=== PATIENT | female | born 1945 | race Caucasian/White ===

== ENCOUNTER 2017-09-20 13:16 | Inpatient (IN) | payer MEDICARE, MEDICAID ==
[~2017-09-20] VITALS: Ht 160 cm; Wt 94.1 kg
[~2017-09-20 13:16] MED LIST: ASPI-611 PO; CYCL-1 PO; DIPH25CA83 PO; HYDR28CR14 TOP; INSU100V36 SQ; LANTUS SQ; NORCO10T PO; SYN0.075T PO
[2017-09-20] MEDS ORDERED: normal saline 1000ML IV soln IVB ONE (13:30)
[2017-09-20] MEDS ORDERED: ondansetron/PF 4mg/2ml inj IV ONE ×2 (13:30→15:20)
[2017-09-20 14:04] LABS: CLARITY,URINE Clear (Clear); COLOR,URINE Yellow (Yellow); GLUCOSE, URINE 500 mg/dl (Neg); KETONES,URINE 15 mg/dl (Neg); LEUKOCYTE ESTERASE ,URINE Negative (Neg); NITRITES, URINE Negative (Neg); OCCULT BLOOD,URINE Negative (Neg); PROTEIN,URINE 100 mg/dl (Neg)
[2017-09-20 14:05] LABS: UA COLLECTION TYPE OTHER
[2017-09-20] MEDS ORDERED: diltiazem-D5W 125mg/125ml 125 ML IV ONE (14:10)
[2017-09-20] MEDS ORDERED: diltiazem 5mg/ml 5ml inj. IV ONE (14:10)
[2017-09-20 14:12] LABS: BACTERIA,URINE NONE SEEN /HPF (Neg); FINE GRANULAR CAST 0-3 /LPF (NEGATIVE); MUCUS STRANDS NONE SEEN /LPF (Neg); RBC,URINE NONE SEEN /HPF (0-2); SQUAMOUS EPITHELIAL CELL,UR FEW /LPF (FEW); WBC,URINE 0-4 /HPF (0-4)
[2017-09-20 14:21] LABS: ALANINE AMINOTRANSFERASE 40 U/L (12-78); ALBUMIN/GLOBULIN RATIO 0.8 (1.1-1.5); ALKALINE PHOSPHATASE 105 IU/L (46-116); ANION GAP 14 (8-16); ASPARTATE AMINO TRANSFERASE 48 U/L (10-37); BILIRUBIN,TOTAL 0.5 MG/DL (0.1-1.0); BLOOD UREA NITROGEN 20 MG/DL (7-18); BUN/CREATININE RATIO 15.7 (6.6-38.0); CALCIUM 8.4 MG/DL (8.5-10.1); CHLORIDE 103 MMOL/L (99-107); CREATININE 1.27 MG/DL (0.40-0.90); GLUCOSE 260 MG/DL (70-104); LIPASE 151 U/L (73-393); MAGNESIUM 1.6 MG/DL (1.5-2.4); POTASSIUM 4.1 MMOL/L (3.5-5.1); SODIUM 140 MMOL/L (135-145); TOTAL CARBON DIOXIDE 23.3 MMOL/L (24-32); TOTAL PROTEIN 6.8 G/DL (6.4-8.2); eGFR 41 ML/MIN
[2017-09-20] MEDS ORDERED: fentaNYL/PF 50MCG/1 ML 2ML syringe IV ONE (15:30)
[2017-09-20 15:47] LABS: BASOPHILS % (AUTO) 0.3 % (0-1); EOSINOPHILS % (AUTO) 0 % (0-6); HEMATOCRIT 42.7 % (35.0-45.0); LYMPHOCYTES # (AUTO) 0.9 X10'3 (1.1-4.8); LYMPHOCYTES % (AUTO) 28.2 % (21-51); MEAN CORPUSCULAR HEMOGLOBIN 29.3 PG (27.0-31.0); MEAN CORPUSCULAR HGB CONC 35.1 % (33.0-36.5); MEAN CORPUSCULAR VOLUME 83.3 FL (78-98); MEAN PLATELET VOLUME 10.5 FL (7.4-10.4); MONOCYTES # (AUTO) 0.4 X10'3 (0-0.9); NEUTROPHILS % (AUTO) 58.5 % (42-75); PLATELET COUNT 128 X10'3 (140-440); RED BLOOD COUNT 5.13 X10'6 (4.20-5.60); RED CELL DISTRIBUTION WIDTH 14.3 % (11.5-14.5); WHITE BLOOD COUNT 3.3 X10'3 (4.5-11.0)
[2017-09-20 16:27] LABS: BURR CELLS FEW; ELLIPTOCYTES FEW; LARGE PLATELETS FEW; PLATELET ESTIMATE DECREASED; POIKILOCYTOSIS 1+; SCHISTOCYTES FEW; SPHEROCYTES FEW
[2017-09-20] MEDS ORDERED: magnesium 4gm in 100ml NS 100 ML IV PRN (18:15)
[2017-09-20] MEDS ORDERED: potassium Cl 20 mEq SR tablet PO PRN ×2 (18:15)
[2017-09-20] MEDS ORDERED: bisacodyl 10mg suppository rectal RC PRN (18:15)
[2017-09-20] MEDS ORDERED: magnesium hydroxide 30ml (MOM) UD suspension PO PRN (18:15)
[2017-09-20] MEDS ORDERED: mag hydrox/Alum hydrox/simeth 30ml oral suspension PO PRN (18:15)
[2017-09-20] MEDS ORDERED: magnesium 2GM in 50ml NS 50 ML IV PRN (18:15)
[2017-09-20] MEDS ORDERED: HYDROcodone/acetaminophen 10/325mg tab PO PRN ×2 (18:15→18:30)
[2017-09-20] MEDS ORDERED: potassium Cl 40MEQ/NS 500ml 500 ML IV PRN ×2 (18:15)
[2017-09-20] MEDS ORDERED: magnesium Cl slow-release 64mg tablet PO PRN (18:15)
[2017-09-20] MEDS ORDERED: acetaminophen 325mg tablet PO PRN ×2 (18:15)
[2017-09-20] MEDS ORDERED: diphenhydrAMINE 25mg capsule PO PRN (18:30)
[2017-09-20] MEDS ORDERED: cyclobenzaprine 10mg tablet PO PRN (18:30)
[2017-09-20] MEDS: docusate sod 100mg capsule PO SCH (20:00)
[2017-09-20 20:26] LABS: HEMOGLOBIN A1C 8.9 % (4.5-6.2)
[2017-09-20] MEDS: hydrocortisone 1% cream 28gm TP SCH (20:34)
[2017-09-20] MEDS: HYDROmorphone inj. 0.5 MG/0.5 ML DISP.SYRIN IV PRN (20:34)
[2017-09-20 21:00] VITALS: BP 114/85
[2017-09-20] MEDS ORDERED: insulin glargine (Lantus) pen - multi-dose SQ SCH (21:00)
[2017-09-20] MEDS: valacyclovir 500mg tablet PO SCH (21:00)
[2017-09-20] MEDS ORDERED: famotidine 20mg tablet PO PRN (21:10)
[2017-09-20] MEDS ORDERED: heparin 10,000 units/1 ML INJ IV ONE (21:10)
[2017-09-20] MEDS ORDERED: heparin 10,000 units/1 ML INJ IV PRN (21:10)
[2017-09-20 23:00] VITALS: BP 94/58
[2017-09-20] MEDS: ondansetron/PF 4mg/2ml inj IV PRN (23:00)
[2017-09-21] VITALS (11 sets, daily range): BP systolic 96–130; BP diastolic 47–94
[2017-09-21] MEDS: HYDROmorphone inj. 0.5 MG/0.5 ML DISP.SYRIN IV PRN ×3 (03:35→20:45)
[2017-09-21 04:03] LABS: URINE AMPHETAMINE SCREEN NEGATIVE (Neg); URINE BARBITUATE SCREEN NEGATIVE (Neg); URINE BENZODIAZEPINES SCREEN NEGATIVE (Neg); URINE CANNABINOID SCREEN NEGATIVE (Neg); URINE COCAINE SCREEN NEGATIVE (Neg); URINE METHADONE SCREEN NEGATIVE (Neg); URINE OPIATE SCREEN POSITIVE (Neg); URINE PHENCYCLIDINE SCREEN NEGATIVE (Neg)
[2017-09-21 04:20] LABS: BASOPHILS % (AUTO) 0.9 % (0-1); EOSINOPHILS % (AUTO) 1.5 % (0-6); HEMATOCRIT 37.5 % (35.0-45.0); LYMPHOCYTES # (AUTO) 1.5 X10'3 (1.1-4.8); LYMPHOCYTES % (AUTO) 50.9 % (21-51); MEAN CORPUSCULAR HEMOGLOBIN 29.3 PG (27.0-31.0); MEAN CORPUSCULAR HGB CONC 34.8 % (33.0-36.5); MEAN CORPUSCULAR VOLUME 84.1 FL (78-98); MEAN PLATELET VOLUME 10.9 FL (7.4-10.4); MONOCYTES # (AUTO) 0.4 X10'3 (0-0.9); MONOCYTES % (AUTO) 13.1 % (2-12); NEUTROPHILS % (AUTO) 33.6 % (42-75); PLATELET COUNT 120 X10'3 (140-440); RED BLOOD COUNT 4.45 X10'6 (4.20-5.60); RED CELL DISTRIBUTION WIDTH 14.3 % (11.5-14.5)
[2017-09-21 04:39] LABS: ALBUMIN 2.6 G/DL (3.4-5.0); ANION GAP 10 (8-16); BLOOD UREA NITROGEN 23 MG/DL (7-18); BUN/CREATININE RATIO 24.5 (6.6-38.0); CALCIUM 7.9 MG/DL (8.5-10.1); CHLORIDE 104 MMOL/L (99-107); CHOL/HDL RATIO 4.3 (0.00-4.99); CHOLESTEROL 165 MG/DL (0-200); CREATININE 0.94 MG/DL (0.40-0.90); GLUCOSE 198 MG/DL (70-104); HDL CHOLESTEROL 38 MG/DL (35-60); LDL CHOLESTEROL 101 MG/DL (50-100); MAGNESIUM 1.5 MG/DL (1.5-2.4); POTASSIUM 3.6 MMOL/L (3.5-5.1); SODIUM 138 MMOL/L (135-145); TOTAL CARBON DIOXIDE 23.7 MMOL/L (24-32); TRIGLYCERIDES 60 MG/DL (20-135); eGFR 59 ML/MIN
[2017-09-21 04:42] LABS: BURR CELLS FEW; PLATELET ESTIMATE DECREASED; TOTAL CELLS COUNTED 100
[2017-09-21 06:52] LABS: PROTHROMBIN TIME 10.7 SECONDS (9.0-12.0)
[2017-09-21] MEDS ORDERED: non-formulary drug (Aspirin (Aspir 81) 1 TABLET) PO SCH (08:00)
[2017-09-21] MEDS: hydrocortisone 1% cream 28gm TP SCH ×2 (08:00→20:46)
[2017-09-21] MEDS: K and/or MAG REPLACEMENT MC SCH (08:00)
[2017-09-21] MEDS: docusate sod 100mg capsule PO SCH ×2 (08:35→20:50)
[2017-09-21] MEDS: levoTHYROXINE 75mcg tablet PO SCH (08:35)
[2017-09-21] MEDS: aspirin 81mg tablet.DR PO SCH (08:35)
[2017-09-21] MEDS: pantoprazole 40mg Tablet.DR PO SCH (08:35)
[2017-09-21] MEDS: oseltamivir phos 75mg capsule PO SCH ×2 (08:36→20:45)
[2017-09-21] MEDS: valacyclovir 500mg tablet PO SCH ×2 (08:36→20:45)
[2017-09-21] MEDS ORDERED: glucagon, human recombinant 1mg kit SUBCUT PRN (15:00)
[2017-09-21] MEDS ORDERED: dextrose ORAL solution 15 GM/59 ML bottle PO PRN ×2 (15:00)
[2017-09-21] MEDS ORDERED: dextrose 50%-water 50ml dispensing syringe IV PRN ×2 (15:00)
[2017-09-21] MEDS ORDERED: MESSAGE TO PHARMACY PO ONE (15:00)
[2017-09-21] MEDS ORDERED: insulin glargine (Lantus) pen - multi-dose SQ SCH (21:00)
[2017-09-21] MEDS: metoprolol tartrate 12.5mg (1/2 tablet) PO SCH (21:45)
[2017-09-22] MEDS: HYDROmorphone inj. 0.5 MG/0.5 ML DISP.SYRIN IV PRN ×3 (01:52→14:17)
[2017-09-22] MEDS: ondansetron/PF 4mg/2ml inj IV PRN (01:52)
[2017-09-22 03:00] VITALS: BP 97/56
[2017-09-22 06:00] VITALS: BP 111/57
[2017-09-22 06:21] LABS: HEMATOCRIT 36.6 % (35.0-45.0); HEMOGLOBIN 12.6 g/dl (12.0-16.0); MEAN CORPUSCULAR HEMOGLOBIN 29.1 PG (27.0-31.0); MEAN CORPUSCULAR HGB CONC 34.4 % (33.0-36.5); MEAN CORPUSCULAR VOLUME 84.7 FL (78-98); PLATELET COUNT 114 X10'3 (140-440); RED BLOOD COUNT 4.32 X10'6 (4.20-5.60); RED CELL DISTRIBUTION WIDTH 13.9 % (11.5-14.5)
[2017-09-22 06:37] LABS: WHITE BLOOD COUNT 2.6 X10'3 (4.5-11.0)
[2017-09-22 06:59] LABS: ALBUMIN 2.5 G/DL (3.4-5.0); ANION GAP 7 (8-16); BLOOD UREA NITROGEN 22 MG/DL (7-18); CALCIUM 8.4 MG/DL (8.5-10.1); CHLORIDE 106 MMOL/L (99-107); CREATININE 1.05 MG/DL (0.40-0.90); GLUCOSE 190 MG/DL (70-104); MAGNESIUM 1.4 MG/DL (1.5-2.4); POTASSIUM 3.8 MMOL/L (3.5-5.1); SODIUM 140 MMOL/L (135-145); TOTAL CARBON DIOXIDE 27.1 MMOL/L (24-32); eGFR 52 ML/MIN
[2017-09-22 07:30] LABS: TOTAL CELLS COUNTED 100
[2017-09-22] MEDS: pantoprazole 40mg Tablet.DR PO SCH (07:30)
[2017-09-22 07:31] LABS: ANISOCYTOSIS 1+; BURR CELLS 1+; MICROCYTOSIS 1+; PLATELET ESTIMATE DECREASED
[2017-09-22 07:32] LABS: LARGE PLATELETS FEW
[2017-09-22 08:00] VITALS: BP_SYST 101; BP_SYST 109; BP_SYST 124; BP_DIAS 58; BP_DIAS 65; BP_DIAS 70
[2017-09-22] MEDS: K and/or MAG REPLACEMENT MC SCH (08:00)
[2017-09-22] MEDS: metoprolol tartrate 12.5mg (1/2 tablet) PO SCH ×2 (08:48→19:37)
[2017-09-22] MEDS: hydrocortisone 1% cream 28gm TP SCH ×2 (08:48→19:26)
[2017-09-22] MEDS: docusate sod 100mg capsule PO SCH ×2 (08:48→19:31)
[2017-09-22] MEDS: levoTHYROXINE 75mcg tablet PO SCH (08:49)
[2017-09-22] MEDS: oseltamivir phos 75mg capsule PO SCH ×2 (08:49→19:31)
[2017-09-22] MEDS: aspirin 81mg tablet.DR PO SCH (08:53)
[2017-09-22] MEDS: insulin Lispro (HumaLOG) vial - multi-dose SQ SCH ×3 (10:21→19:25)
[2017-09-22 11:00] VITALS: BP 96/55
[2017-09-22 15:00] VITALS: BP 124/64
[2017-09-22] MEDS ORDERED: normal saline 1000ml 1,000 ML IV ONE (15:40)
[2017-09-22] MEDS ORDERED: TAM75C PO (15:46)
[2017-09-22] MEDS ORDERED: METO25TA6 PO (15:46)
[2017-09-22 18:00] VITALS: BP 114/64
[2017-09-22] MEDS ORDERED: APIX5TAB3 PO (18:58)
[2017-09-22] MEDS ORDERED: apixaban 5mg tablet PO SCH (21:40)
== END 2017-09-22 19:50 | disposition home or self-care (01) | DRG 872 ==
LOC: ER 13:17 → ED HOLD 18:14 → PCU 3S 21:05
PROVIDERS: ADMIT Internal Medicine; ATTEND Internal Medicine
DX: A41.9 Sepsis, unspecified organism (principal); I95.9 Hypotension, unspecified; D69.6 Thrombocytopenia, unspecified; I48.91 Unspecified atrial fibrillation; E66.01 Morbid (severe) obesity due to excess calories; E11.9 Type 2 diabetes mellitus without complications; D72.819 Decreased white blood cell count, unspecified; I25.10 Atherosclerotic heart disease of native coronary artery without angina pectoris; E03.9 Hypothyroidism, unspecified; G89.29 Other chronic pain; M54.9 Dorsalgia, unspecified; I10 Essential (primary) hypertension; E78.00 Pure hypercholesterolemia, unspecified; J10.1 Influenza due to other identified influenza virus with other respiratory manifestations; M19.90 Unspecified osteoarthritis, unspecified site; Z90.49 Acquired absence of other specified parts of digestive tract; Z90.710 Acquired absence of both cervix and uterus; Z88.5 Allergy status to narcotic agent; Z88.2 Allergy status to sulfonamides; Z79.899 Other long term (current) drug therapy; Z79.82 Long term (current) use of aspirin; Z79.4 Long term (current) use of insulin; Z68.36 Body mass index [BMI] 36.0-36.9, adult
CPT/HCPCS: 36415; 71045; 74176; 80048; 80053; 80061; 80305; 80320; 81001; 82948; 83036; 83605; 83690; 83735; 83880; 84145; 84443; 84484; 85025; 85610; 85730; 87040; 87070; 87502; 87503; 93005; 93306; 96361; 96365; 96375; 99291; J1170; J1644; J1815; J2405; J3010; J3490; J7030

== ENCOUNTER 2017-11-03 06:23 | Emergency (ER) | payer MEDICARE, MEDICAID ==
[~2017-11-03] VITALS: Ht 5451.6 cm; Wt 90.9 kg
[~2017-11-03 06:23] MED LIST changes: +APIX5TAB3 PO; +METO25TA6 PO; +TAM75C PO
[2017-11-03 06:26] VITALS: BP 145/72
[2017-11-03] MEDS ORDERED: HYDR-569 PO (07:22)
[2017-11-03] MEDS ORDERED: dexamethasone 4mg tablet PO ONE (07:25)
== END 2017-11-03 07:34 | disposition home or self-care (01) ==
LOC: ER 06:24
DX: M54.32 Sciatica, left side (principal); I25.10 Atherosclerotic heart disease of native coronary artery without angina pectoris; E11.9 Type 2 diabetes mellitus without complications; I10 Essential (primary) hypertension; G89.29 Other chronic pain; E78.00 Pure hypercholesterolemia, unspecified; Z88.2 Allergy status to sulfonamides; Z90.49 Acquired absence of other specified parts of digestive tract; Z90.710 Acquired absence of both cervix and uterus; Z79.82 Long term (current) use of aspirin; Z79.4 Long term (current) use of insulin; Z79.899 Other long term (current) drug therapy
CPT/HCPCS: 99283; J8540

== ENCOUNTER 2018-01-25 22:10 | Emergency (ER) | payer MEDICARE, MEDICAID ==
[~2018-01-25] VITALS: Ht 157.5 cm; Wt 100.0 kg
[~2018-01-25 22:10] MED LIST changes: +HYDR-569 PO
[2018-01-25 22:38] LABS: BASOPHILS # (AUTO) 0.1 X10'3 (0-0.2); BASOPHILS % (AUTO) 1.5 % (0-1); EOSINOPHILS # (AUTO) 0.1 X10'3 (0-0.9); EOSINOPHILS % (AUTO) 0.8 % (0-6); HEMOGLOBIN 14.4 g/dl (12.0-16.0); LYMPHOCYTES # (AUTO) 1.9 X10'3 (1.1-4.8); LYMPHOCYTES % (AUTO) 24.3 % (21-51); MEAN CORPUSCULAR HEMOGLOBIN 29.1 PG (27.0-31.0); MEAN CORPUSCULAR HGB CONC 34.4 % (33.0-36.5); MEAN CORPUSCULAR VOLUME 84.4 FL (78-98); MEAN PLATELET VOLUME 10.7 FL (7.4-10.4); MONOCYTES # (AUTO) 0.5 X10'3 (0-0.9); MONOCYTES % (AUTO) 6.4 % (2-12); NEUTROPHILS # (AUTO) 5.1 X10'3 (1.8-7.7); PLATELET COUNT 159 X10'3 (140-440); RED BLOOD COUNT 4.97 X10'6 (4.20-5.60); RED CELL DISTRIBUTION WIDTH 14.5 % (11.5-14.5); WHITE BLOOD COUNT 7.6 X10'3 (4.5-11.0)
[2018-01-25 22:54] LABS: ALANINE AMINOTRANSFERASE 28 U/L (12-78); ALBUMIN 3.7 G/DL (3.4-5.0); ALKALINE PHOSPHATASE 103 IU/L (46-116); ANION GAP 9 (8-16); ASPARTATE AMINO TRANSFERASE 18 U/L (10-37); BILIRUBIN,TOTAL 0.6 MG/DL (0.1-1.0); BLOOD UREA NITROGEN 13 MG/DL (7-18); BUN/CREATININE RATIO 13.8 (6.6-38.0); CALCIUM 9.7 MG/DL (8.5-10.1); CHLORIDE 106 MMOL/L (99-107); CREATININE 0.94 MG/DL (0.40-0.90); GLUCOSE 207 MG/DL (70-104); POTASSIUM 3.9 MMOL/L (3.5-5.1); SODIUM 143 MMOL/L (135-145); TOTAL CARBON DIOXIDE 27.7 MMOL/L (24-32); TOTAL PROTEIN 7.4 G/DL (6.4-8.2); eGFR 58 ML/MIN
[2018-01-25 23:19] VITALS: BP 209/98
== END 2018-01-26 00:31 | disposition home or self-care (01) ==
LOC: ER 22:11
DX: M41.9 Scoliosis, unspecified (principal); M54.40 Lumbago with sciatica, unspecified side; M25.552 Pain in left hip; R42 Dizziness and giddiness; I25.10 Atherosclerotic heart disease of native coronary artery without angina pectoris; I10 Essential (primary) hypertension; E78.00 Pure hypercholesterolemia, unspecified; E11.9 Type 2 diabetes mellitus without complications; M19.90 Unspecified osteoarthritis, unspecified site; G89.29 Other chronic pain; Z90.49 Acquired absence of other specified parts of digestive tract; Z90.710 Acquired absence of both cervix and uterus; Z98.890 Other specified postprocedural states; Z88.5 Allergy status to narcotic agent; Z88.2 Allergy status to sulfonamides; Z79.4 Long term (current) use of insulin; Z79.899 Other long term (current) drug therapy
CPT/HCPCS: 36415; 71045; 72100; 73502; 80053; 82948; 84439; 84443; 84484; 85025; 93005; 99285

== ENCOUNTER 2018-03-30 12:32 | Emergency (ER) | payer MEDICARE, MEDICAID ==
[~2018-03-30] VITALS: Ht 157.5 cm; Wt 92.7 kg
[2018-03-30 13:12] LABS: CLARITY,URINE Clear (Clear); COLOR,URINE Yellow (Yellow); GLUCOSE, URINE >=1000 mg/dl (Neg); KETONES,URINE Negative (Neg); LEUKOCYTE ESTERASE ,URINE Trace (Neg); NITRITES, URINE Negative (Neg); OCCULT BLOOD,URINE Negative (Neg); PROTEIN,URINE Negative (Neg); UROBILINOGEN,URINE 0.2 E.U/dL (0.2-1.0)
[2018-03-30 13:13] LABS: UA COLLECTION TYPE VOIDED
[2018-03-30 13:16] LABS: BASOPHILS % (AUTO) 0.8 % (0-1); EOSINOPHILS # (AUTO) 0.1 X10'3 (0-0.9); EOSINOPHILS % (AUTO) 2.3 % (0-6); HEMATOCRIT 39.5 % (35.0-45.0); HEMOGLOBIN 13.6 g/dl (12.0-16.0); LYMPHOCYTES # (AUTO) 1.6 X10'3 (1.1-4.8); LYMPHOCYTES % (AUTO) 27.7 % (21-51); MEAN CORPUSCULAR HEMOGLOBIN 29.5 PG (27.0-31.0); MEAN CORPUSCULAR HGB CONC 34.3 % (33.0-36.5); MEAN CORPUSCULAR VOLUME 85.8 FL (78-98); MEAN PLATELET VOLUME 10.6 FL (7.4-10.4); MONOCYTES # (AUTO) 0.5 X10'3 (0-0.9); MONOCYTES % (AUTO) 8.8 % (2-12); NEUTROPHILS # (AUTO) 3.6 X10'3 (1.8-7.7); NEUTROPHILS % (AUTO) 60.4 % (42-75); PLATELET COUNT 153 X10'3 (140-440); RED BLOOD COUNT 4.61 X10'6 (4.20-5.60); RED CELL DISTRIBUTION WIDTH 14.4 % (11.5-14.5); WHITE BLOOD COUNT 5.9 X10'3 (4.5-11.0)
[2018-03-30 13:21] LABS: BACTERIA,URINE 4+ /HPF (Neg); MUCUS STRANDS NONE SEEN /LPF (Neg); RBC,URINE NONE SEEN /HPF (0-2); SQUAMOUS EPITHELIAL CELL,UR FEW /LPF (FEW); TRANSITIONAL EPI CELLS,URINE FEW /HPF; WBC CLUMPS,URINE MODERATE /HPF (NEGATIVE); WBC,URINE 30-50 /HPF (0-4)
[2018-03-30 13:32] LABS: INR 1.2 INR; LARGE PLATELETS FEW; PARTIAL THROMBOPLASTIN TIME 35 SECONDS (22-32); PLATELET ESTIMATE NORMAL; PROTHROMBIN TIME 12.1 SECONDS (9.0-12.0)
[2018-03-30 13:38] LABS: ALANINE AMINOTRANSFERASE 28 U/L (12-78); ALBUMIN 3.4 G/DL (3.4-5.0); ALBUMIN/GLOBULIN RATIO 0.9 (1.1-1.5); ALKALINE PHOSPHATASE 98 IU/L (46-116); ANION GAP 8 (8-16); ASPARTATE AMINO TRANSFERASE 13 U/L (10-37); BILIRUBIN,TOTAL 0.4 MG/DL (0.1-1.0); BLOOD UREA NITROGEN 24 MG/DL (7-18); BUN/CREATININE RATIO 23.5 (6.6-38.0); CALCIUM 9.3 MG/DL (8.5-10.1); CHLORIDE 103 MMOL/L (99-107); CREATININE 1.02 MG/DL (0.40-0.90); GLUCOSE 271 MG/DL (70-104); POTASSIUM 4.1 MMOL/L (3.5-5.1); SODIUM 139 MMOL/L (135-145); TOTAL CARBON DIOXIDE 27.8 MMOL/L (24-32); TOTAL PROTEIN 7.1 G/DL (6.4-8.2); eGFR 53 ML/MIN
[2018-03-30] MEDS ORDERED: CEPH250T PO (14:34)
[2018-03-30] MEDS: CefTRIAXone 2gm/D5W 50ml 50 ML IV ONE (14:51)
[2018-03-30] MEDS: insulin regular, human 10 units/0.1 ml syringe IV ONE (14:57)
[2018-03-30] MEDS: normal saline 1000ML IV soln IVB ONE (15:01)
[2018-03-30 15:59] VITALS: BP 130/69
== END 2018-03-30 16:16 | disposition home or self-care (01) ==
LOC: ER 12:32
DX: N39.0 Urinary tract infection, site not specified (principal); R07.9 Chest pain, unspecified; R06.02 Shortness of breath; I25.10 Atherosclerotic heart disease of native coronary artery without angina pectoris; E78.00 Pure hypercholesterolemia, unspecified; I10 Essential (primary) hypertension; E11.9 Type 2 diabetes mellitus without complications; M19.90 Unspecified osteoarthritis, unspecified site; G89.29 Other chronic pain; Z88.6 Allergy status to analgesic agent; Z88.2 Allergy status to sulfonamides; Z79.82 Long term (current) use of aspirin; Z79.899 Other long term (current) drug therapy; Z79.4 Long term (current) use of insulin; Z86.73 Personal history of transient ischemic attack (TIA), and cerebral infarction without residual deficits; Z90.710 Acquired absence of both cervix and uterus; Z90.49 Acquired absence of other specified parts of digestive tract
CPT/HCPCS: 36415; 71045; 80053; 81001; 82948; 83605; 83735; 84484; 85025; 85610; 85730; 87040; 87077; 87088; 87186; 93005; 96365; 96366; 96375; 99285; J0696; J1815; J7030

== ENCOUNTER 2018-03-31 22:00 | Emergency (ER) | payer MEDICARE, MEDICAID ==
[~2018-03-31] VITALS: Ht 157.5 cm; Wt 92.7 kg
[~2018-03-31 22:00] MED LIST changes: +CEPH250T PO
[2018-03-31 22:11] VITALS: BP 146/65
== END 2018-04-01 | disposition left against medical advice (07) ==
LOC: ER 22:01
DX: R53.1 Weakness (principal); Z53.21 Procedure and treatment not carried out due to patient leaving prior to being seen by health care provider
CPT/HCPCS: 82948

== ENCOUNTER 2018-08-07 15:45 | Emergency (ER) | payer MEDICARE, MEDICAID ==
[~2018-08-07] VITALS: Ht 157.5 cm; Wt 97.0 kg
[~2018-08-07 15:45] MED LIST changes: -CEPH250T PO; +HYDR-4383 PO; -HYDR-569 PO
--- NOTE | 2018-08-07 15:59 | NUR ---
case discussed with dr rodriguez and orders received.
[2018-08-07 17:15] LABS: BASOPHILS % (AUTO) 0.7 % (0-1); EOSINOPHILS # (AUTO) 0.1 X10'3 (0-0.9); EOSINOPHILS % (AUTO) 1.2 % (0-6); HEMATOCRIT 41.3 % (35.0-45.0); HEMOGLOBIN 13.5 g/dl (12.0-16.0); LYMPHOCYTES # (AUTO) 1.5 X10'3 (1.1-4.8); LYMPHOCYTES % (AUTO) 26.4 % (21-51); MEAN CORPUSCULAR HEMOGLOBIN 28.4 PG (27.0-31.0); MEAN CORPUSCULAR HGB CONC 32.8 % (33.0-36.5); MEAN CORPUSCULAR VOLUME 86.6 FL (78-98); MEAN PLATELET VOLUME 11.3 FL (7.4-10.4); MONOCYTES # (AUTO) 0.5 X10'3 (0-0.9); MONOCYTES % (AUTO) 8.2 % (2-12); NEUTROPHILS # (AUTO) 3.5 X10'3 (1.8-7.7); NEUTROPHILS % (AUTO) 63.5 % (42-75); PLATELET COUNT 155 X10'3 (140-440); RED BLOOD COUNT 4.77 X10'6 (4.20-5.60); WHITE BLOOD COUNT 5.6 X10'3 (4.5-11.0)
[2018-08-07 17:33] LABS: PARTIAL THROMBOPLASTIN TIME 29 SECONDS (22-32); PROTHROMBIN TIME 10.2 SECONDS (9.0-12.0)
[2018-08-07 17:39] LABS: ALANINE AMINOTRANSFERASE 21 U/L (12-78); ALBUMIN 3.2 G/DL (3.4-5.0); ALBUMIN/GLOBULIN RATIO 0.9 (1.1-1.5); ALKALINE PHOSPHATASE 96 IU/L (46-116); ANION GAP 8 (8-16); ASPARTATE AMINO TRANSFERASE 16 U/L (10-37); BILIRUBIN,TOTAL 0.6 MG/DL (0.1-1.0); BLOOD UREA NITROGEN 22 MG/DL (7-18); BUN/CREATININE RATIO 22.9 (6.6-38.0); CALCIUM 8.6 MG/DL (8.5-10.1); CHLORIDE 103 MMOL/L (99-107); CREATININE 0.96 MG/DL (0.40-0.90); GLUCOSE 251 MG/DL (70-104); POTASSIUM 3.9 MMOL/L (3.5-5.1); SODIUM 139 MMOL/L (135-145); TOTAL CARBON DIOXIDE 28.5 MMOL/L (24-32); TOTAL PROTEIN 6.9 G/DL (6.4-8.2); TROPONIN I < 0.04 NG/ML (0.0-0.05); eGFR 57 ML/MIN
[2018-08-07 17:59] VITALS: BP 142/73
--- NOTE | 2018-08-07 18:33 | NUR ---
PT REQUESTING TO BE DISCHARGED, JARETT CAVANAUGH MADE AWARE, PER PA WE ARE WAITING FOR ONE MORE LAB TEST AND LONG NORMAL PT WILL BE D/C. PT INFORMED.
--- NOTE | 2018-08-07 18:41 | NUR ---
PT REQUESTING TO LEAVE, JARETT CAVANAUGH NOTIFIED, HE WILL GO IN TO REASSESS PATIENT FOR POSSIBLE DISCHARGE OR REQUEST THE PATIENT SIGN AMA.
== END 2018-08-07 18:55 | disposition home or self-care (01) ==
LOC: ER 15:45
DX: R51 Headache (principal); I25.10 Atherosclerotic heart disease of native coronary artery without angina pectoris; E78.00 Pure hypercholesterolemia, unspecified; I10 Essential (primary) hypertension; E11.9 Type 2 diabetes mellitus without complications; M19.90 Unspecified osteoarthritis, unspecified site; G89.29 Other chronic pain; Z86.73 Personal history of transient ischemic attack (TIA), and cerebral infarction without residual deficits; Z90.49 Acquired absence of other specified parts of digestive tract; Z98.890 Other specified postprocedural states; Z90.710 Acquired absence of both cervix and uterus; Z88.5 Allergy status to narcotic agent; Z88.2 Allergy status to sulfonamides; Z79.82 Long term (current) use of aspirin; Z79.899 Other long term (current) drug therapy; Z79.4 Long term (current) use of insulin
CPT/HCPCS: 36415; 70450; 71045; 80053; 84484; 85025; 85610; 85651; 85730; 93005; 99284

== ENCOUNTER 2018-08-27 22:14 | Emergency (ER) | payer MEDICARE, MEDICAID ==
[~2018-08-27] VITALS: Ht 157.5 cm; Wt 95.4 kg
--- NOTE | 2018-08-27 22:40 | NUR ---
Patient very anxious, and becoming increasingly so when s/sx addressed.
[2018-08-27 22:51] LABS: BASOPHILS # (AUTO) 0.1 X10'3 (0-0.2); BASOPHILS % (AUTO) 1.7 % (0-1); EOSINOPHILS # (AUTO) 0.1 X10'3 (0-0.9); HEMATOCRIT 41.7 % (35.0-45.0); HEMOGLOBIN 14.1 g/dl (12.0-16.0); LYMPHOCYTES # (AUTO) 1.9 X10'3 (1.1-4.8); LYMPHOCYTES % (AUTO) 30.6 % (21-51); MEAN CORPUSCULAR HGB CONC 33.8 g/dL (33.0-36.5); MEAN CORPUSCULAR VOLUME 85.9 FL (78-98); MONOCYTES # (AUTO) 0.5 X10'3 (0-0.9); MONOCYTES % (AUTO) 7.5 % (2-12); NEUTROPHILS # (AUTO) 3.6 X10'3 (1.8-7.7); NEUTROPHILS % (AUTO) 58.2 % (42-75); PLATELET COUNT 174 X10'3 (140-440); RED BLOOD COUNT 4.86 X10'6 (4.20-5.60); RED CELL DISTRIBUTION WIDTH 13.8 % (11.5-14.5); WHITE BLOOD COUNT 6.3 X10'3 (4.5-11.0)
[2018-08-27 23:02] LABS: ALANINE AMINOTRANSFERASE 25 U/L (12-78); ALBUMIN 3.4 G/DL (3.4-5.0); ALBUMIN/GLOBULIN RATIO 0.9 (1.1-1.5); ALKALINE PHOSPHATASE 106 IU/L (46-116); ANION GAP 7 (8-16); ASPARTATE AMINO TRANSFERASE 15 U/L (10-37); BILIRUBIN,TOTAL 0.4 MG/DL (0.1-1.0); BLOOD UREA NITROGEN 28 MG/DL (7-18); BUN/CREATININE RATIO 24.1 (6.6-38.0); CHLORIDE 103 MMOL/L (99-107); CREATININE 1.16 MG/DL (0.40-0.90); GLUCOSE 288 MG/DL (70-104); PARTIAL THROMBOPLASTIN TIME 30 SECONDS (22-32); PROTHROMBIN TIME 10.2 SECONDS (9.0-12.0); SODIUM 139 MMOL/L (135-145); TOTAL CARBON DIOXIDE 28.6 MMOL/L (24-32); TOTAL PROTEIN 7.3 G/DL (6.4-8.2); eGFR 46 ML/MIN
[2018-08-27] MEDS ORDERED: aspirin 81mg tab.chew PO ONE (23:05)
[2018-08-27] MEDS ORDERED: nitroGLYCERIN 0.4mg SUBLingual tab SL PRN (23:05)
[2018-08-27] MEDS ORDERED: LORazepam 2 mg/ml vial IV ONE (23:05)
--- NOTE | 2018-08-27 23:15 | NUR ---
Patient requesting dilaudid by name, ERP informed
--- NOTE | 2018-08-27 23:57 | NUR ---
assisting RN with pt care, in and out cath done with sterile technique, pt benedicto well, sample sent to lab
[2018-08-28] MEDS ORDERED: HYDROcodone/acetaminophen 10/325mg tab PO ONE (00:10)
[2018-08-28] MEDS ORDERED: ketorolac trometh. 30mg/ml inj. IV ONE (00:10)
--- NOTE | 2018-08-28 00:20 | NUR ---
Patient requesting dilaudid by name, ERP informed.
[2018-08-28 00:32] LABS: CLARITY,URINE CLEAR (Clear); COLOR,URINE YELLOW (Yellow); GLUCOSE, URINE 500 mg/dl (Neg); KETONES,URINE TRACE mg/dl (Neg); LEUKOCYTE ESTERASE ,URINE NEGATIVE (Neg); NITRITES, URINE NEGATIVE (Neg); OCCULT BLOOD,URINE NEGATIVE (Neg); PH,URINE 6.5 (4.8-8.0); PROTEIN,URINE NEGATIVE (Neg); UROBILINOGEN,URINE 0.2 E.U/dL (0.2-1.0)
[2018-08-28 00:34] LABS: UA COLLECTION TYPE OTHER
[2018-08-28] MEDS ORDERED: levoFLOXACIN 250mg tablet PO ONE (00:40)
[2018-08-28 00:48] VITALS: BP 102/55
[2018-08-28] MEDS ORDERED: ondansetron 4mg rapidly disintigrating tab PO ONE (00:55)
--- NOTE | 2018-08-28 01:07 | NUR ---
Attempting to discharge patient, patient states unable to take po pills d/t nausea despite not having c/o nausea at any time during the visit to this RN. States she doesn't want the norco, and is refusing the levaquin at this time, "I have norco at home, I come here for for pain medications in my IV" Explained that she was given toradol in IV. Again requested Dilaudid by name. When POC was again endorsed to patient, she requested a medical doctor to eval her. SHELBIE Saenz informed.
--- NOTE | 2018-08-28 01:25 | NUR ---
Letty at bedside, orders received for flexeril, and continue discharge.
[2018-08-28] MEDS ORDERED: cyclobenzaprine 10mg tablet PO ONE (01:35)
--- NOTE | 2018-08-28 01:35 | NUR ---
Patient upset, states that she does not feel that she should be discharge unless her pain is completly gone, again asking for IV pain medications. Patient with an unrealistic expectation of pain control.
--- NOTE | 2018-08-28 01:40 | NUR ---
SHELBIE Saenz at bedside with supervisor propellant charge loading.
[2018-08-28] MEDS ORDERED: fentaNYL/PF 50MCG/1 ML 2ML syringe IV ONE (01:45)
--- NOTE | 2018-08-28 01:48 | NUR ---
pt asking to speak to an MD as well as "the head nurse" (was seen by PA) - Dr. Saenz and I spoke with pt and educated on her previous diagnosis of UTI and need to complete antibiotics as directed and that her pain may be related to this infection. She is further educated on the medications that she has already rec'd in ER for her pain s\\s (toradol, ASA, ativan) and also that she has refused the [place] and abx we offered her. She wants to know "when it became acceptable to send pts home in pain" - We again told her that we are trying to manage her pain with the medications given and that no medication is going to eliminate her pain. She states in the past "dilaudid made it so I could go home and sleep and deal with the pain" - she is advised that she is not getting dilaudid and that we can give her flexeril and fentanyl.
--- NOTE | 2018-08-28 02:07 | NUR ---
while administering the fentanyl, pt questions the strength of the medication. She is told that it is 50mcg and then proceeds to state "so it isn't as strong because it is in mcg?" I attempted to educate her about different medications by giving her examples such as a dose of tylenol being 1g and 1mg of dilaudid being equivalent to 7mg morphine but she didn't understand.
--- NOTE | 2018-08-28 02:23 | NUR ---
once again attempted to d\\c patient. She is now asking about her blood sugar and worried about it "being so high" since she isn't planning on going home tonight and isn't traveling with her medications. pt [place] 2[place]. pt is requesting "humalog" - MD advised, pts sugar rechecked and returns at 202. pt will not be medicated and is made aware of this and understands the need to check and take her meds upon returning home. pts IV is removed and a wheelchair is brought and she will be assisted to parkinBeavEx. pt now thanking staffing and asking to let all the staff know she "appreciates us"
== END 2018-08-28 02:45 | disposition home or self-care (01) ==
LOC: ER 22:15
DX: R07.89 Other chest pain (principal); N39.0 Urinary tract infection, site not specified; F41.9 Anxiety disorder, unspecified; M54.5 Low back pain; I25.10 Atherosclerotic heart disease of native coronary artery without angina pectoris; E78.00 Pure hypercholesterolemia, unspecified; I10 Essential (primary) hypertension; E11.9 Type 2 diabetes mellitus without complications; M19.90 Unspecified osteoarthritis, unspecified site; G89.29 Other chronic pain; Z86.73 Personal history of transient ischemic attack (TIA), and cerebral infarction without residual deficits; Z90.49 Acquired absence of other specified parts of digestive tract; Z90.710 Acquired absence of both cervix and uterus; Z98.890 Other specified postprocedural states; Z88.5 Allergy status to narcotic agent; Z88.2 Allergy status to sulfonamides; Z79.82 Long term (current) use of aspirin; Z79.899 Other long term (current) drug therapy; Z79.4 Long term (current) use of insulin
CPT/HCPCS: 36415; 71045; 80053; 81003; 82948; 84484; 85025; 85610; 85730; 93005; 96374; 96375; 99284; J1885; J2060; J3010

== ENCOUNTER 2018-10-31 07:45 | Inpatient (IN) | payer MEDICARE, MEDICAID ==
[~2018-10-31] VITALS: Ht 157.5 cm; Wt 95.5 kg
[2018-10-31] MEDS ORDERED: aspirin 81mg tab.chew PO ONE (08:00)
[2018-10-31] MEDS ORDERED: nitroGLYCERIN 0.4mg SUBLingual tab SL PRN ×2 (08:00→13:10)
--- NOTE | 2018-10-31 08:12 | NUR ---
patient refused aspirin-takes eliquiz,also refused nitro-per fish protector she's not suppsoe to take nitro-Dr. Vincent aware.
[2018-10-31 08:33] LABS: BASOPHILS # (AUTO) 0.1 X10'3 (0-0.2); BASOPHILS % (AUTO) 1.2 % (0-1); EOSINOPHILS # (AUTO) 0.1 X10'3 (0-0.9); EOSINOPHILS % (AUTO) 2.2 % (0-6); HEMATOCRIT 39.9 % (35.0-45.0); HEMOGLOBIN 13.5 g/dl (12.0-16.0); LYMPHOCYTES # (AUTO) 1.8 X10'3 (1.1-4.8); LYMPHOCYTES % (AUTO) 31.2 % (21-51); MEAN CORPUSCULAR HEMOGLOBIN 28.6 PG (27.0-31.0); MEAN CORPUSCULAR HGB CONC 33.8 g/dL (33.0-36.5); MEAN CORPUSCULAR VOLUME 84.7 FL (78-98); MEAN PLATELET VOLUME 10.6 FL (7.4-10.4); MONOCYTES # (AUTO) 0.6 X10'3 (0-0.9); MONOCYTES % (AUTO) 11.2 % (2-12); NEUTROPHILS # (AUTO) 3.1 X10'3 (1.8-7.7); NEUTROPHILS % (AUTO) 54.2 % (42-75); PLATELET COUNT 148 X10'3 (140-440); RED BLOOD COUNT 4.71 X10'6 (4.20-5.60); RED CELL DISTRIBUTION WIDTH 14.7 % (11.5-14.5); WHITE BLOOD COUNT 5.8 X10'3 (4.5-11.0)
[2018-10-31 08:42] LABS: ALANINE AMINOTRANSFERASE 25 U/L (12-78); ALBUMIN 3.2 G/DL (3.4-5.0); ALBUMIN/GLOBULIN RATIO 0.9 (1.1-1.5); ALKALINE PHOSPHATASE 115 IU/L (46-116); ANION GAP 9 (8-16); ASPARTATE AMINO TRANSFERASE 24 U/L (10-37); BILIRUBIN,TOTAL 0.4 MG/DL (0.1-1.0); BLOOD UREA NITROGEN 25 MG/DL (7-18); BUN/CREATININE RATIO 25.5 (6.6-38.0); CALCIUM 8.8 MG/DL (8.5-10.1); CHLORIDE 107 MMOL/L (99-107); CREATININE 0.98 MG/DL (0.40-0.90); GLUCOSE 161 MG/DL (70-104); POTASSIUM 3.8 MMOL/L (3.5-5.1); SODIUM 141 MMOL/L (135-145); TOTAL CARBON DIOXIDE 24.8 MMOL/L (24-32); TOTAL PROTEIN 6.7 G/DL (6.4-8.2); eGFR 56 ML/MIN
[2018-10-31 09:02] LABS: LARGE PLATELETS FEW; PLATELET ESTIMATE NORMAL
--- NOTE | 2018-10-31 09:03 | NUR ---
at bedside. Pt is refusing to be admitted at this time. she wants to rent a hotel room and see if the chest pain subsides.
[2018-10-31] MEDS ORDERED: ondansetron/PF 4mg/2ml inj IV ONE (09:15)
[2018-10-31] MEDS ORDERED: LORazepam 2 mg/ml vial IV ONE (09:20)
[2018-10-31] MEDS ORDERED: acetaminophen 325mg tablet PO PRN ×2 (09:45)
[2018-10-31] MEDS ORDERED: ondansetron/PF 4mg/2ml inj IV PRN (09:45)
[2018-10-31] MEDS ORDERED: insulin Lispro (HumaLOG) vial - multi-dose SQ SCH (09:45)
[2018-10-31] MEDS ORDERED: magnesium 4gm in 100ml NS 100 ML IV PRN (09:45)
[2018-10-31] MEDS ORDERED: dextrose 50%-water 50ml dispensing syringe IV PRN ×2 (09:45)
[2018-10-31] MEDS ORDERED: morphine 4 MG/ML inj SYRINge IV PRN (09:45)
[2018-10-31] MEDS ORDERED: docusate sod 100mg capsule PO PRN (09:45)
[2018-10-31] MEDS ORDERED: mag hydrox/Alum hydrox/simeth 30ml oral suspension PO PRN (09:45)
[2018-10-31] MEDS ORDERED: potassium Cl 20 mEq SR tablet PO PRN ×2 (09:45)
[2018-10-31] MEDS ORDERED: dextrose ORAL solution 15 GM/59 ML bottle PO PRN ×2 (09:45)
[2018-10-31] MEDS ORDERED: magnesium Cl slow-release 64mg tablet PO PRN (09:45)
[2018-10-31] MEDS ORDERED: MESSAGE TO PHARMACY PO ONE (09:45)
[2018-10-31] MEDS ORDERED: glucagon, human recombinant 1mg kit SUBCUT PRN (09:45)
[2018-10-31] MEDS ORDERED: potassium Cl 40MEQ/NS 500ml 500 ML IV PRN ×2 (09:45)
[2018-10-31] MEDS ORDERED: magnesium 2GM in 50ml NS 50 ML IV PRN (09:45)
[2018-10-31 09:47] LABS: CLARITY,URINE CLEAR (Clear); COLOR,URINE YELLOW (Yellow); GLUCOSE, URINE NEGATIVE (Neg); KETONES,URINE NEGATIVE (Neg); LEUKOCYTE ESTERASE ,URINE NEGATIVE (Neg); NITRITES, URINE NEGATIVE (Neg); OCCULT BLOOD,URINE NEGATIVE (Neg); PH,URINE 5.5 (4.8-8.0); PROTEIN,URINE NEGATIVE (Neg); UROBILINOGEN,URINE 0.2 E.U/dL (0.2-1.0)
[2018-10-31 09:48] LABS: UA COLLECTION TYPE CLN CATCH MIDSTREAM
[2018-10-31 10:07] LABS: CHOL/HDL RATIO 3.6 (0.00-4.99); CHOLESTEROL 218 MG/DL (0-200); HDL CHOLESTEROL 60 MG/DL (35-60); LDL CHOLESTEROL 153 MG/DL (50-100); TRIGLYCERIDES 57 MG/DL (20-135)
[2018-10-31] MEDS: normal saline 1000ml 1,000 ML IV SCH ×2 (10:07→16:45)
[2018-10-31] MEDS ORDERED: fentaNYL/PF 50MCG/1 ML 2ML syringe IV ONE (11:05)
[2018-10-31] MEDS ORDERED: HYDROmorphone inj. 0.5 MG/0.5 ML DISP.SYRIN IV ONE ×2 (12:10→21:20)
[2018-10-31] MEDS ORDERED: CIPR-230 PO (12:32)
[2018-10-31] MEDS ORDERED: APIX5TAB3 PO (12:32)
[2018-10-31] MEDS ORDERED: METO-395 PO (12:32)
[2018-10-31] MEDS ORDERED: MULT-1180 PO (12:32)
[2018-10-31] MEDS ORDERED: metoprolol tartrate 1mg/ml inj IV PRN (13:10)
[2018-10-31] MEDS ORDERED: aminophylline 250mg/10ml inj. IV PRN (13:10)
[2018-10-31] MEDS ORDERED: regadenoson 0.4mg/5ml syringe IV ONE (13:10)
[2018-10-31 13:33] LABS: HEMOGLOBIN A1C 8.4 % (4.5-6.2)
--- NOTE | 2018-10-31 14:54 | NUR ---
received pt report from Mariia DELACRUZ; all questions answered
[2018-10-31 15:00] VITALS: BP 115/51
--- NOTE | 2018-10-31 15:00 | NUR ---
pt arrived to floor via wheel chair. pt oriented to room and call light. VSS.
--- NOTE | 2018-10-31 15:50 | NUR ---
PATIENT MOVED TO ROOM 316. TO ACCOMMODATE ALLOWING THE TO STAY WITH PATIENT. PATIENT ALSO ASKED IF HER DIRECTOR OF TAX SERVICES DOG, JOHANA, WOULD BE ALLOWED IN HER ROOM. I EXPLAINED TO THE PATIENT THAT WOULD BE OK - HOWEVER, IF THE DOG STARTS BARKING OR MAKES A MESS IN THE ROOM THEN UNFORTUNATELY THE DOG WOULD NEED TO GO. PATIENT AND VERBALIZED UNDERSTANDING
--- NOTE | 2018-10-31 16:54 | NUR ---
PAGER ID: [phone] MESSAGE: Yolanda Dominguez. rm 316. pt has not had BM in 3 days. requesting a suppository. pt is also asking for dialaudid for pain. won't take Mathews because nauseous and allergy to morphine. Diana ext [phone]
[2018-10-31] MEDS ORDERED: bisacodyl 10mg suppository rectal RC STA (16:57)
--- NOTE | 2018-10-31 17:02 | NUR ---
Angelina called back. new orders received: suppository x1 now, dilaudid x1 dose only. Angelina said she would place the dilaudid order. Addendum: 10/31/18 at 1703 by Felicity Foster RN dulcolax 5mg suppository
[2018-10-31 18:00] VITALS: BP 131/90
--- NOTE | 2018-10-31 18:15 | NUR ---
Patient in room MED 316. I have received report from Diana and had the opportunity to ask questions and assume patient care.
--- NOTE | 2018-10-31 18:22 | NUR ---
Problems reprioritized. Patient report given, questions answered & plan of care reviewed with Jones DELACRUZ.
[2018-10-31] MEDS ORDERED: apixaban 5mg tablet PO SCH (20:00)
--- NOTE | 2018-10-31 20:30 | NUR ---
Patient requesting to have "a dilaudid pain shot before i go to bed". When assessed for pain the patient states that she has stomach pain, but that it comes and goes, and sometimes she just needs to have a BM. Explained to patient that she does not have a current order for dilaudid but that she does have an order for norco for pain. Patient began to cry and said that "she was told by doctor Martin that she could have the dialudid pain shot because she cant take morphine". I explained to her that the ER physician did give her a one time order for dilaudid but that we don't have a current order, and that typically we would give oral pain medication first and if that wasn't effective to try IV pain meds or other oral pain medications if the first line medications weren't effective. Patient began to raise her voice and states "they told me the other doctor put in an order for dialudid, i was told i was going to get it". I did receive in report from the previous RN that there was a call placed to the MD but that a new order wasn't written. The patient had, per report, stated that her stomach hurt and that she couldn't take oral pain medication because of the upset stomach and stomach pain. Patient then ate nearly 100% of her meal tray and did not complain of pain during that time. I explained this to the patient and that we can try zofran, norco, and a suppository to try and relive her stomach pain, but that we would try and refrain from using such strong medications as dilaudid for an acute chest pain. She then states, without prompting, "well, i have chest pain now. That's why i am here. I don't have stomach pain, Its chest pain, and it radiates from my chest into my neck and into my shoulder". I asked the patient then if she would like pain medication- i have [place] that can be given to her right now- she raised her voice again and began to tell the same reflection of her time in the ER, "that Dr Villa said i could have Dialudid, only dialudid works, if i just wanted to take norco i should have just stayed home" I again, explained that we don't have a current order for iv pain medication, that we have an order for PO [place], and if it doesn't work that we can reassess and request something else. Patient has agreed, at this time to take the PO [place].
[2018-10-31] MEDS: HYDROcodone/acetaminophen 5mg/325mg tablet PO PRN ×2 (20:48→21:10)
[2018-10-31] MEDS ORDERED: insulin glargine (Lantus) pen - multi-dose SQ SCH (21:00)
[2018-10-31] MEDS ORDERED: metoprolol succinate 25mg (24-HOUR) SR. Tablet PO SCH (21:00)
--- NOTE | 2018-10-31 21:00 | NUR ---
RN was no able to pass Eliquis and Metoprolol medication due to fact patient took home medication because "she had been waiting all day for her meds". Charge nurse inventoried her personal medications and placed them in the [facility] pharmacy. Patient become highly uncooperative because she stated that the MD promised her Dilaudid earlier in the day. She refused initially her [place] 5/325 pain medication stating that she would throw up despite eating approximately 90% of her dinner with no issues. Pt received Dilaudid per new MD order but still questioned completing the stress test scheduled for her in the AM because she didn't feel comfortable with someone new doing the test.
--- NOTE | 2018-10-31 21:09 | NUR ---
Pagskylar Culp re: pain medication for patient. Waiting for call back- PAGER ID: [phone] MESSAGE: Yolanda Dominguez 316 Please call ACCE hand laundererNUBIA Wilder when able. [phone]
--- NOTE | 2018-10-31 21:21 | NUR ---
received call back from stone splitter MD Culp- explained that norco was ineffective for patients pain. Received one time order for IV dialudid 0.5mg ONCE. Order entered. Will administer when available.
[2018-10-31 22:00] VITALS: BP 142/64
[2018-11-01 02:00] VITALS: BP 114/53
--- NOTE | 2018-11-01 05:00 | NUR ---
Pt stated that she is refusing the 4/6 scheduled Lexiscan due to strange environment and different personnel. Wishes to accomplish stress test at another facility.
[2018-11-01 05:28] LABS: BASOPHILS % (AUTO) 0.7 % (0-1); EOSINOPHILS # (AUTO) 0.1 X10'3 (0-0.9); HEMATOCRIT 35.5 % (35.0-45.0); HEMOGLOBIN 12.1 g/dl (12.0-16.0); LYMPHOCYTES # (AUTO) 2.2 X10'3 (1.1-4.8); LYMPHOCYTES % (AUTO) 40.2 % (21-51); MEAN CORPUSCULAR HEMOGLOBIN 28.9 PG (27.0-31.0); MEAN CORPUSCULAR VOLUME 84.8 FL (78-98); MEAN PLATELET VOLUME 10.6 FL (7.4-10.4); MONOCYTES # (AUTO) 0.6 X10'3 (0-0.9); MONOCYTES % (AUTO) 10.5 % (2-12); NEUTROPHILS # (AUTO) 2.5 X10'3 (1.8-7.7); NEUTROPHILS % (AUTO) 46.6 % (42-75); PLATELET COUNT 133 X10'3 (140-440); RED BLOOD COUNT 4.18 X10'6 (4.20-5.60); RED CELL DISTRIBUTION WIDTH 14.2 % (11.5-14.5); WHITE BLOOD COUNT 5.4 X10'3 (4.5-11.0)
--- NOTE | 2018-11-01 05:31 | NUR ---
patient now states that she will have stress test if can be present. It has been explained to patient that i was unsure at this time of night if her can come, but that we will find out in the morning. Patient states "well, they already told me that he could". I responded- "if you have already been told that he could why are you saying you wont go, but that you will go only if your can come? I am confused because this is the 5th time that we have talked about the procedure and you have given different reasons every time" She responds, as she has in the five previous conversations regarding the jesus scan but in various orders: ", i just dont want to take business away [facility]; and the keyanna that works there, he knows me and he knows that my blood pressure gets really high; and he always lets my be there; and he has a lot of experience; and i dont know if the people who do them here have experience; My blood pressure gets really, high, and he knows how to handle me". I explained to her that her "blood pressure during the procedure will likely get high, but that this is why it is done here at the hospital and in a controlled environment so that we can closely monitor the effects of the medication, that the people doing the jesus scan here have been doing multiple jesus scans a day for many many years, and that for an er admission we wouldn't transport her to another outpatient clinic to have a jesus scan done when it can be done here in this hospital". After receiving a call from the warehouse clerk it was cleared up that the can be presetn during the jesus scan. I informed the patient of this and the patient is now removing her gown and medical devices. She states she spoke with the warehouse clerk and is leaving. Call received from warehouse clerk stating that he spoke with her and explained that at this moment there is a pressing matter that requires his attention elsewhere, but if she would be willing to wait until after 0700 he could come and speak with her. Patient states "no, she is leaving and will come back at 0800 to meet with Senior Product Development Engineer". I asked patient "are you saying that you are leaving the hospital against medical advice?" she states "I am". I explained to patient- "i am required to provide you education that it is absolutely against medical advice, that you shouldn't leave the hospital, that a doctor doesnt believe you should leave the hospital, that the risks associated with leaving the hospital are up to and including possible or a worsening of any conditions that could also lead up to and include . Do you understand the seriousness of what i have explained to you and that we do not recommend leaving the hospital without a doctors explicit approval, that she will not be discharged with and new prescriptions and will need to follow up with her primary care doctor as soon as possible and to return to the er if her symptoms persist or worsen". She again stated understanding. CONNIE paperwork is being presented to her by primary RN at this time.
[2018-11-01 05:35] LABS: ALANINE AMINOTRANSFERASE 22 U/L (12-78); ALBUMIN 2.9 G/DL (3.4-5.0); ALBUMIN/GLOBULIN RATIO 0.9 (1.1-1.5); ALKALINE PHOSPHATASE 105 IU/L (46-116); ANION GAP 6 (8-16); ASPARTATE AMINO TRANSFERASE 16 U/L (10-37); BILIRUBIN,TOTAL 0.4 MG/DL (0.1-1.0); BLOOD UREA NITROGEN 22 MG/DL (7-18); BUN/CREATININE RATIO 22.4 (6.6-38.0); CALCIUM 8.8 MG/DL (8.5-10.1); CHLORIDE 108 MMOL/L (99-107); CHOL/HDL RATIO 3.6 (0.00-4.99); CHOLESTEROL 180 MG/DL (0-200); CREATININE 0.98 MG/DL (0.40-0.90); GLUCOSE 204 MG/DL (70-104); HDL CHOLESTEROL 50 MG/DL (35-60); LDL CHOLESTEROL 120 MG/DL (50-100); MAGNESIUM 1.8 MG/DL (1.5-2.4); POTASSIUM 4.4 MMOL/L (3.5-5.1); SODIUM 140 MMOL/L (135-145); TOTAL PROTEIN 6.1 G/DL (6.4-8.2); TRIGLYCERIDES 87 MG/DL (20-135); eGFR 56 ML/MIN
--- NOTE | 2018-11-01 06:10 | NUR ---
patient has signed ama form. Risks explained to patient and , both expressed understanding. Removed iv. provided patient with wheel chair. Patient has items in safe- explained to her that she should speak with PBX regarding safe items- gave her safe plastic tracker strip- she needs to berry picker the red phone in the lobby by the front doors- states he knows where the phone is.
--- NOTE | 2018-11-01 06:28 | NUR ---
PATIENTS IS WHEELING PATIENT OUT IN WHEELCHAIR. NURSING HAS REQUESTED COUNTY COURT JUDGE.
[2018-11-01] MEDS ORDERED: aspirin 81mg tablet.DR PO SCH (08:00)
[2018-11-01] MEDS ORDERED: levoTHYROXINE 75mcg tablet PO SCH (08:00)
[2018-11-01] MEDS ORDERED: K and/or MAG REPLACEMENT MC SCH (08:00)
[2018-11-01] MEDS ORDERED: regadenoson 0.4mg/5ml syringe IV ONE (08:00)
== END 2018-11-01 06:25 | disposition left against medical advice (07) | DRG 311 ==
LOC: ER 07:45 → ED HOLD 09:43 → MED 3N 15:00
PROVIDERS: ADMIT Internal Medicine; ATTEND Internal Medicine
DX: I24.9 Acute ischemic heart disease, unspecified (principal); E03.9 Hypothyroidism, unspecified; E10.65 Type 1 diabetes mellitus with hyperglycemia; E78.00 Pure hypercholesterolemia, unspecified; I10 Essential (primary) hypertension; I25.10 Atherosclerotic heart disease of native coronary artery without angina pectoris; I48.91 Unspecified atrial fibrillation; G89.29 Other chronic pain; M19.90 Unspecified osteoarthritis, unspecified site; Z53.21 Procedure and treatment not carried out due to patient leaving prior to being seen by health care provider; M54.9 Dorsalgia, unspecified; N28.9 Disorder of kidney and ureter, unspecified; Z86.73 Personal history of transient ischemic attack (TIA), and cerebral infarction without residual deficits; Z90.49 Acquired absence of other specified parts of digestive tract; Z90.710 Acquired absence of both cervix and uterus; Z88.5 Allergy status to narcotic agent; Z88.2 Allergy status to sulfonamides; Z83.3 Family history of diabetes mellitus; Z82.49 Family history of ischemic heart disease and other diseases of the circulatory system
CPT/HCPCS: 36415; 71045; 80053; 80061; 81003; 82948; 83036; 83735; 83880; 84439; 84443; 84484; 85025; 87070; 93005; 93306; 96374; 96375; 99285; G0378; J1170; J1815; J2060; J2405; J3010; J7030

== ENCOUNTER 2019-06-18 12:22 | Emergency (ER) | payer MEDICARE, MEDICAID ==
[~2019-06-18] VITALS: Ht 157.5 cm; Wt 94.5 kg
[~2019-06-18 12:22] MED LIST changes: +CIPR-230 PO; -CYCL-1 PO; -DIPH25CA83 PO; -HYDR-4383 PO; -HYDR28CR14 TOP; +METO-395 PO; -METO25TA6 PO; +MULT-1180 PO; -TAM75C PO
[2019-06-18] MEDS ORDERED: orphenadrine citrate 60mg/2ml inj. IM ONE (14:05)
[2019-06-18] MEDS ORDERED: ketorolac tromethamine 15mg/ml inj. IM ONE (14:05)
[2019-06-18] MEDS ORDERED: LORazepam 1 MG tablet PO ONE (14:45)
[2019-06-18 14:56] VITALS: BP 141/76
[2019-06-18 16:12] LABS: CLARITY,URINE SLIGHTLY CLOUDY (Clear); COLOR,URINE YELLOW (Yellow); GLUCOSE, URINE NEGATIVE (Neg); KETONES,URINE NEGATIVE (Neg); LEUKOCYTE ESTERASE ,URINE TRACE (Neg); NITRITES, URINE NEGATIVE (Neg); OCCULT BLOOD,URINE TRACE-LYSED (Neg); PH,URINE 5.5 (4.8-8.0); PROTEIN,URINE TRACE mg/dl (Neg); UROBILINOGEN,URINE 0.2 E.U/dL (0.2-1.0)
[2019-06-18 16:15] LABS: UA COLLECTION TYPE CLN CATCH MIDSTREAM
[2019-06-18 16:22] LABS: BACTERIA,URINE 2+ /HPF (Neg); MUCUS STRANDS FEW /LPF (Neg); SQUAMOUS EPITHELIAL CELL,UR MODERATE /LPF (FEW)
[2019-06-18 16:23] LABS: RBC,URINE 0-2 /HPF (0-2); WBC,URINE 50-100 /HPF (0-4)
[2019-06-18] MEDS ORDERED: CEPH500C5 PO (16:44)
[2019-06-18] MEDS ORDERED: HYDROcodone/acetaminophen 10/325mg tab PO ONE (16:50)
[2019-06-18] MEDS ORDERED: ondansetron 4mg rapidly disintigrating tab PO ONE (16:50)
--- NOTE | 2019-06-18 16:52 | NUR ---
called pharmacy to verify zofran med.
--- NOTE | 2019-06-18 17:00 | NUR ---
about to medicated the pt was explaining the action of medications zofran and norco for pain ,pt stated that norco does not work for her ,she requested for other pain medication notified maureen smith about pt request as per maureen smith pt already got pain inj and she is allergic to morphine kina only option if she can take norco otherwise he is not going to prescribe anything ,notified the maureen smith response to the pt ,pt want to speak to charge nurse notified abdoulaye grinder set up operator external to talk to pt .pt notified that charge will be here shortly.pt verbalized understanding.
--- NOTE | 2019-06-18 17:25 | NUR ---
maureen smith came to explain the pt about the consequence of strong pain medication,maureen smith requested the pt to try norco med as pt take it at home ,pt not willing to take the norco .
--- NOTE | 2019-06-18 17:35 | NUR ---
pt refuesed her norco medication ,pt stated to maureen smith that she usually get diluadid for pain as per pa he is not going to precribe diluadid ,pt said she is ready to go home as her son here to pick her up.nurse stanford spoke to pt and got discharge paperwork signed .
== END 2019-06-18 17:38 | disposition home or self-care (01) ==
LOC: ER 12:24
DX: N39.0 Urinary tract infection, site not specified (principal); M54.5 Low back pain; R05 Cough; I25.10 Atherosclerotic heart disease of native coronary artery without angina pectoris; E78.00 Pure hypercholesterolemia, unspecified; I10 Essential (primary) hypertension; E11.9 Type 2 diabetes mellitus without complications; M19.90 Unspecified osteoarthritis, unspecified site; G89.29 Other chronic pain; Z90.49 Acquired absence of other specified parts of digestive tract; Z90.710 Acquired absence of both cervix and uterus; Z86.73 Personal history of transient ischemic attack (TIA), and cerebral infarction without residual deficits; Z98.890 Other specified postprocedural states; Z88.5 Allergy status to narcotic agent; Z88.2 Allergy status to sulfonamides; Z79.82 Long term (current) use of aspirin; Z79.4 Long term (current) use of insulin; Z79.899 Other long term (current) drug therapy
CPT/HCPCS: 74176; 81001; 87077; 87088; 87186; 96372; 99284; J1885; J2360

== ENCOUNTER 2019-08-06 02:49 | Observation (INO) | payer MEDICARE, MEDICAID ==
[~2019-08-06] VITALS: Ht 157.5 cm; Wt 98.0 kg
[~2019-08-06 02:49] MED LIST changes: +CEPH500C5 PO
[2019-08-06 03:27] LABS: BASOPHILS # (AUTO) 0.1 X10'3 (0-0.2); EOSINOPHILS # (AUTO) 0.1 X10'3 (0-0.9); HEMATOCRIT 39.4 % (35.0-45.0); HEMOGLOBIN 13.4 g/dl (12.0-16.0); LYMPHOCYTES # (AUTO) 1.7 X10'3 (1.1-4.8); LYMPHOCYTES % (AUTO) 29.4 % (21-51); MEAN CORPUSCULAR HEMOGLOBIN 28.9 PG (27.0-31.0); MEAN CORPUSCULAR HGB CONC 33.9 g/dL (33.0-36.5); MEAN CORPUSCULAR VOLUME 85.2 FL (78-98); MEAN PLATELET VOLUME 10.4 FL (7.4-10.4); MONOCYTES # (AUTO) 0.6 X10'3 (0-0.9); MONOCYTES % (AUTO) 9.9 % (2-12); NEUTROPHILS # (AUTO) 3.4 X10'3 (1.8-7.7); NEUTROPHILS % (AUTO) 57.7 % (42-75); PLATELET COUNT 150 X10'3 (140-440); RED BLOOD COUNT 4.63 X10'6 (4.20-5.60); RED CELL DISTRIBUTION WIDTH 14.1 % (11.5-14.5); WHITE BLOOD COUNT 5.9 X10'3 (4.5-11.0)
[2019-08-06 03:56] LABS: ALANINE AMINOTRANSFERASE 23 U/L (12-78); ALBUMIN 3.4 G/DL (3.4-5.0); ALBUMIN/GLOBULIN RATIO 0.9 (1.1-1.5); ALKALINE PHOSPHATASE 101 IU/L (46-116); ANION GAP 3 (8-16); ASPARTATE AMINO TRANSFERASE 15 U/L (10-37); BILIRUBIN,TOTAL 0.5 MG/DL (0.1-1.0); BLOOD UREA NITROGEN 23 MG/DL (7-18); BUN/CREATININE RATIO 24.7 (6.6-38.0); CALCIUM 9.2 MG/DL (8.5-10.1); CHLORIDE 107 MMOL/L (99-107); CREATININE 0.93 MG/DL (0.40-0.90); GLUCOSE 277 MG/DL (70-104); POTASSIUM 4.2 MMOL/L (3.5-5.1); SODIUM 141 MMOL/L (135-145); TOTAL CARBON DIOXIDE 31.3 MMOL/L (24-32); eGFR 59 ML/MIN
[2019-08-06] MEDS ORDERED: nitroGLYCERIN 0.4mg/hour patch TD ONE (04:15)
[2019-08-06] MEDS ORDERED: aspirin 81mg tab.chew PO ONE (04:15)
[2019-08-06] MEDS ORDERED: metoprolol tartrate 1mg/ml inj IV PRN ×2 (04:55→05:50)
[2019-08-06] MEDS ORDERED: mag hydrox/Alum hydrox/simeth 30ml oral suspension PO PRN (04:55)
[2019-08-06] MEDS ORDERED: potassium CL 10mEq/100ml bag 100 ML IV PRN ×2 (04:55)
[2019-08-06] MEDS ORDERED: magnesium Cl slow-release 64mg tablet PO PRN (04:55)
[2019-08-06] MEDS ORDERED: magnesium 4gm in 100ml NS 100 ML IV PRN (04:55)
[2019-08-06] MEDS ORDERED: magnesium 2GM in 50ml NS 50 ML IV PRN (04:55)
[2019-08-06] MEDS ORDERED: magnesium hydroxide 30ml (MOM) UD suspension PO PRN (04:55)
[2019-08-06] MEDS ORDERED: nitroGLYCERIN 0.4mg SUBLingual tab SL PRN ×2 (04:55→05:50)
[2019-08-06] MEDS ORDERED: potassium Cl 20 mEq SR tablet PO PRN ×2 (04:55)
[2019-08-06] MEDS ORDERED: ondansetron/PF 4mg/2ml inj IV PRN (04:55)
[2019-08-06] MEDS ORDERED: acetaminophen 325mg tablet PO PRN ×2 (04:55)
--- NOTE | 2019-08-06 05:05 | NUR ---
Patient complaining of pain from the IV that was previously inserted that goes from her left shoulder down to her elbow and states, "my back feels like it is breaking in two!" She states that she is certain that all of this pain is from the IV start as her symptoms started shortly after. Dr. Culp is at bedside and is made aware.
--- NOTE | 2019-08-06 05:40 | NUR ---
HOSPITALIST IN TO SEE PT. NO REQUEST AT THIS TIME.
[2019-08-06] MEDS ORDERED: regadenoson 0.4mg/5ml syringe IV PRN (05:50)
[2019-08-06] MEDS ORDERED: aminophylline 250mg/10ml inj. IV PRN (05:50)
--- NOTE | 2019-08-06 06:11 | NUR ---
PT REFUSING NITROGLYCERIN AND CHEWABLE ASPIRINS. STATES "MY COMMERCIAL RETOUCHER TOLD ME NOT TO TAKE ASPIRIN BECAUSE IM ON A BLOOD THINNER AND SHE TOLD ME NOT TO PUT ANY NITRO UNDER MY TONGUE. PT INSTRUCTED THE NITRO IS A PATCH, SHE STATSE "I DONT HAVE ANY CHEST PAIN, YOU SEE MY IN MAY AND WHEN I STRESS I GET CHEST PAIN BUT I'M HERE BECAUSE I HAVE JAW PAIN." PT INSTRUCTED THIS IS STANDARD PROTOCOL FOR CHEST PAIN. SHE IS REQUESTING I CALL DR. LOPEZ TO LET HIM KNOW WHY. PT GOT UP TO [facility], SKIN ASSESSMENT PERFORMED, NO SKIN ISSUES OTHER THEN BLL REDNESS AND EDEMA WELL BLANCHABLE REDNESS ON SACRUM. PT NOW LYING ON HER LEFT SIDE. NO OTHER REQUEST AT THIS TIME.
[2019-08-06] MEDS ORDERED: AMIT-189 PO (06:44)
--- NOTE | 2019-08-06 07:00 | NUR ---
Patient in room ED 4 will be admitted to PCU 3014A. I have received report from Veronika RN and had the opportunity to ask questions and assume patient care.
[2019-08-06 07:30] VITALS: BP 125/58
--- NOTE | 2019-08-06 07:30 | NUR ---
Pt is admitted to room 3014A from ED via gurney, transferred to bed with no issues, oriented to room, call light w/in reach, baseline VS completed, will continue to monitor.
[2019-08-06] MEDS ORDERED: K and/or MAG REPLACEMENT MC SCH (08:00)
[2019-08-06] MEDS ORDERED: aspirin 81mg tablet.DR PO SCH (08:00)
[2019-08-06] MEDS ORDERED: metoprolol tartrate 50mg tablet PO SCH (08:00)
--- NOTE | 2019-08-06 08:49 | NUR ---
PAGER ID: [phone] MESSAGE: [phone] Yolanda Dominguez: New admit refuses lexiscan stats she had one 6 months prior @ [facility]. Thanks Valeria
--- NOTE | 2019-08-06 08:57 | NUR ---
patient states her clinical support associate, Dr. San off [address], told her not to take any aspirin or medication under neath the tongue, has refused AM scheduled aspirin
[2019-08-06] MEDS ORDERED: metoprolol tartrate 12.5mg (1/2 tablet) PO SCH (09:14)
--- NOTE | 2019-08-06 10:46 | NUR ---
PAGER ID: [phone] MESSAGE: [id number] Yolanda Dominguez: ADY Fuentes results from [facility] in chart, results normal. thanks Valeria [phone]
[2019-08-06 11:00] VITALS: BP 129/55
[2019-08-06] MEDS ORDERED: insulin Lispro (HumaLOG) vial - multi-dose SQ SCH (12:00)
[2019-08-06] MEDS ORDERED: MESSAGE TO PHARMACY PO ONE (12:00)
[2019-08-06] MEDS ORDERED: dextrose ORAL solution 15 GM/59 ML bottle PO PRN ×2 (12:00)
[2019-08-06] MEDS ORDERED: glucagon, human recombinant 1mg kit SUBCUT PRN (12:00)
[2019-08-06] MEDS ORDERED: dextrose 50%-water 50ml dispensing syringe IV PRN ×2 (12:00)
--- NOTE | 2019-08-06 12:05 | NUR ---
PAGER ID: [phone] MESSAGE: [phone] Yolanda Dominguez: Pt states does not take humalog it causes her cramping, she takes 47 units of lantus in the morning and has not received any yet, do you want to give lantus 47units q am and one time now? thanks Valeria [phone]
--- NOTE | 2019-08-06 14:11 | NUR ---
PAGER ID: [phone] MESSAGE: [phone] Yolanda Dominguez: FYI Trops have come back negative, pt continues to deny chest pain, and previous jesus results in chart. thanks Valeria [phone]
[2019-08-06 15:00] VITALS: BP 142/53
[2019-08-06] MEDS ORDERED: NITR0.4T51 SL (15:56)
[2019-08-06] MEDS ORDERED: ASPI-1071 PO (15:56)
--- NOTE | 2019-08-06 16:27 | NUR ---
DM consult, Hgb A1c is 9.4%. Patient given written DM education handout with verbal review and referral to outpatient DM education class on Saturday. Addendum: 08/06/19 at [address] Amended: Links added.
--- NOTE | 2019-08-06 18:30 | NUR ---
Pt is stable for discharge per md orders, discharge instructions reviewed with patient, new medication [facility] to [facility] in [place] per pt preference, tele monitor removed and returned, piv dc'ed and clean dry dressing in place, pt discharge from unit at 1830, wheeled down to lobby with hospital staff, pt picked up belongings at security, pt states she will drive home but will charge phone before leaving, all belongings with pt at time of discharge.
[2019-08-06] MEDS ORDERED: insulin glargine (Lantus) pen - multi-dose SQ SCH (21:00)
--- NOTE | 2019-08-07 15:38 | NUR ---
Case management DC follow up: Unable to contact pt/phone number does not got through (calling restrictions). Tried second phone number for family member, no identifiers d
== END 2019-08-06 19:25 | disposition home or self-care (01) ==
LOC: ER 02:50 → ED HOLD 05:43 → EDBEDREQ 05:50 → PCU 3S 07:13
PROVIDERS: ADMIT Hospitalist; ATTEND Family Medicine
DX: R07.89 Other chest pain (principal); F41.9 Anxiety disorder, unspecified; E66.9 Obesity, unspecified; J44.9 Chronic obstructive pulmonary disease, unspecified; I25.10 Atherosclerotic heart disease of native coronary artery without angina pectoris; E78.00 Pure hypercholesterolemia, unspecified; E03.9 Hypothyroidism, unspecified; F32.9 Major depressive disorder, single episode, unspecified; I48.91 Unspecified atrial fibrillation; I25.2 Old myocardial infarction; I10 Essential (primary) hypertension; E11.9 Type 2 diabetes mellitus without complications; M19.90 Unspecified osteoarthritis, unspecified site; G89.4 Chronic pain syndrome; Z86.73 Personal history of transient ischemic attack (TIA), and cerebral infarction without residual deficits; Z90.49 Acquired absence of other specified parts of digestive tract; Z90.710 Acquired absence of both cervix and uterus; Z79.01 Long term (current) use of anticoagulants; Z79.890 Hormone replacement therapy; Z79.82 Long term (current) use of aspirin; Z79.899 Other long term (current) drug therapy; Z88.5 Allergy status to narcotic agent; Z88.2 Allergy status to sulfonamides
CPT/HCPCS: 36415; 71045; 80053; 82948; 83036; 84484; 85025; 87081; 93005; 93306; 99284; G0378; J1815

== ENCOUNTER 2019-10-02 20:26 | Emergency (ER) | payer MEDICARE, MEDICAID ==
[~2019-10-02] VITALS: Ht 162.6 cm; Wt 97.3 kg
[~2019-10-02 20:26] MED LIST changes: +AMIT-189 PO; +ASPI-1071 PO; -ASPI-611 PO; -CEPH500C5 PO; -CIPR-230 PO; +NITR0.4T51 SL
[2019-10-02 20:51] VITALS: BP 152/64
[2019-10-02] MEDS ORDERED: CLOT45CR29 TOP (22:34)
== END 2019-10-02 22:50 | disposition home or self-care (01) ==
LOC: ER 20:27
DX: N76.0 Acute vaginitis (principal); I25.10 Atherosclerotic heart disease of native coronary artery without angina pectoris; E78.00 Pure hypercholesterolemia, unspecified; I10 Essential (primary) hypertension; E11.9 Type 2 diabetes mellitus without complications; M19.90 Unspecified osteoarthritis, unspecified site; G89.29 Other chronic pain; Z86.73 Personal history of transient ischemic attack (TIA), and cerebral infarction without residual deficits; Z90.49 Acquired absence of other specified parts of digestive tract; Z90.710 Acquired absence of both cervix and uterus; Z98.890 Other specified postprocedural states; Z88.5 Allergy status to narcotic agent; Z79.82 Long term (current) use of aspirin; Z79.4 Long term (current) use of insulin; Z79.899 Other long term (current) drug therapy; Z86.19 Personal history of other infectious and parasitic diseases
CPT/HCPCS: 82948; 99283

== ENCOUNTER 2019-10-07 14:06 | Emergency (ER) | payer MEDICARE, MEDICAID ==
[~2019-10-07] VITALS: Ht 157.5 cm; Wt 100.0 kg
[~2019-10-07 14:06] MED LIST changes: +CLOT45CR29 TOP
[2019-10-07 15:20] LABS: BASOPHILS # (AUTO) 0.1 X10'3 (0-0.2); BASOPHILS % (AUTO) 1.1 % (0-1); EOSINOPHILS # (AUTO) 0.1 X10'3 (0-0.9); EOSINOPHILS % (AUTO) 1.3 % (0-6); HEMATOCRIT 40.2 % (35.0-45.0); HEMOGLOBIN 13.5 g/dl (12.0-16.0); LYMPHOCYTES # (AUTO) 1.6 X10'3 (1.1-4.8); LYMPHOCYTES % (AUTO) 27.6 % (21-51); MEAN CORPUSCULAR HEMOGLOBIN 28.4 PG (27.0-31.0); MEAN CORPUSCULAR HGB CONC 33.6 g/dL (33.0-36.5); MEAN CORPUSCULAR VOLUME 84.7 FL (78-98); MEAN PLATELET VOLUME 9.7 FL (7.4-10.4); MONOCYTES # (AUTO) 0.5 X10'3 (0-0.9); MONOCYTES % (AUTO) 8.5 % (2-12); NEUTROPHILS # (AUTO) 3.7 X10'3 (1.8-7.7); NEUTROPHILS % (AUTO) 61.5 % (42-75); PLATELET COUNT 150 X10'3 (140-440); RED BLOOD COUNT 4.75 X10'6 (4.20-5.60); RED CELL DISTRIBUTION WIDTH 14.6 % (11.5-14.5)
[2019-10-07 15:46] LABS: ALANINE AMINOTRANSFERASE 9 U/L (12-78); ALBUMIN 3.3 G/DL (3.4-5.0); ALBUMIN/GLOBULIN RATIO 0.9 (1.1-1.5); ALKALINE PHOSPHATASE 104 IU/L (46-116); ANION GAP 6 (8-16); ASPARTATE AMINO TRANSFERASE 21 U/L (10-37); BILIRUBIN,TOTAL 0.5 MG/DL (0.1-1.0); BLOOD UREA NITROGEN 15 MG/DL (7-18); BUN/CREATININE RATIO 18.8 (6.6-38.0); CALCIUM 9.4 MG/DL (8.5-10.1); CHLORIDE 108 MMOL/L (99-107); GLUCOSE 133 MG/DL (70-104); SODIUM 142 MMOL/L (135-145); TOTAL CARBON DIOXIDE 27.6 MMOL/L (24-32); eGFR 70 ML/MIN
--- NOTE | 2019-10-07 17:07 | NUR ---
pt wishing to leave, Dr Rivera in room 18 to evaluate pt
[2019-10-07 17:35] VITALS: BP 188/87
--- NOTE | 2019-10-07 17:37 | NUR ---
Dr Rivera aware of BP, informed pt to take BP med (she missed dose yesterday) and follow up with PMD regarding BP, pt verbalized understanding
== END 2019-10-07 17:37 | disposition home or self-care (01) ==
LOC: ER 14:07
DX: R07.9 Chest pain, unspecified (principal); R11.0 Nausea; R10.816 Epigastric abdominal tenderness; E78.00 Pure hypercholesterolemia, unspecified; I10 Essential (primary) hypertension; E11.9 Type 2 diabetes mellitus without complications; B19.20 Unspecified viral hepatitis C without hepatic coma; N39.0 Urinary tract infection, site not specified; M19.90 Unspecified osteoarthritis, unspecified site; G89.29 Other chronic pain; Z90.89 Acquired absence of other organs; Z90.710 Acquired absence of both cervix and uterus; Z90.49 Acquired absence of other specified parts of digestive tract; Z95.1 Presence of aortocoronary bypass graft; Z88.5 Allergy status to narcotic agent; Z88.2 Allergy status to sulfonamides; Z88.6 Allergy status to analgesic agent; Z86.73 Personal history of transient ischemic attack (TIA), and cerebral infarction without residual deficits; Z79.899 Other long term (current) drug therapy
CPT/HCPCS: 36415; 71045; 80053; 82948; 84484; 85025; 93005; 99285

== ENCOUNTER 2020-02-17 20:06 | Emergency (ER) | payer MEDICARE, MEDICAID ==
[~2020-02-17] VITALS: Ht 157.5 cm; Wt 97.3 kg
[2020-02-17 20:42] LABS: BASOPHILS # (AUTO) 0.1 X10'3 (0-0.2); BASOPHILS % (AUTO) 1.1 % (0-1); EOSINOPHILS # (AUTO) 0.1 X10'3 (0-0.9); HEMATOCRIT 46.1 % (35.0-45.0); HEMOGLOBIN 15.4 g/dl (12.0-16.0); LYMPHOCYTES # (AUTO) 2.3 X10'3 (1.1-4.8); LYMPHOCYTES % (AUTO) 29.2 % (21-51); MEAN CORPUSCULAR HEMOGLOBIN 28.8 PG (27.0-31.0); MEAN CORPUSCULAR HGB CONC 33.4 g/dL (33.0-36.5); MEAN CORPUSCULAR VOLUME 86.2 FL (78-98); MEAN PLATELET VOLUME 11.2 FL (7.4-10.4); MONOCYTES # (AUTO) 0.8 X10'3 (0-0.9); MONOCYTES % (AUTO) 9.7 % (2-12); NEUTROPHILS # (AUTO) 4.7 X10'3 (1.8-7.7); PLATELET COUNT 183 X10'3 (140-440); RED BLOOD COUNT 5.35 X10'6 (4.20-5.60); RED CELL DISTRIBUTION WIDTH 14.1 % (11.5-14.5); WHITE BLOOD COUNT 7.9 X10'3 (4.5-11.0)
[2020-02-17 21:00] LABS: ALANINE AMINOTRANSFERASE 24 U/L (12-78); ALBUMIN 3.7 G/DL (3.4-5.0); ALBUMIN/GLOBULIN RATIO 0.8 (1.1-1.5); ALKALINE PHOSPHATASE 121 IU/L (46-116); ANION GAP 8 (8-16); ASPARTATE AMINO TRANSFERASE 11 U/L (10-37); BILIRUBIN,TOTAL 0.6 MG/DL (0.1-1.0); BLOOD UREA NITROGEN 32 MG/DL (7-18); BUN/CREATININE RATIO 22.7 (6.6-38.0); CALCIUM 9.1 MG/DL (8.5-10.1); CHLORIDE 99 MMOL/L (99-107); CREATININE 1.41 MG/DL (0.40-0.90); GLUCOSE 289 MG/DL (70-104); POTASSIUM 4.3 MMOL/L (3.5-5.1); SODIUM 136 MMOL/L (135-145); TOTAL CARBON DIOXIDE 28.9 MMOL/L (24-32); TOTAL PROTEIN 8.1 G/DL (6.4-8.2); eGFR 36 ML/MIN
[2020-02-17] MEDS ORDERED: magnesium 2GM in 50ml NS 50 ML IV ONE (21:20)
[2020-02-17] MEDS ORDERED: normal saline 1000ML IV soln IVB ONE (21:20)
[2020-02-17 21:50] LABS: D-DIMER 0.43 MG/L FEU (0-0.50)
--- NOTE | 2020-02-17 22:18 | NUR ---
GRANDMIGUEL DARRICK'S NUMBER [phone]
[2020-02-17 22:42] VITALS: BP 150/69
== END 2020-02-17 22:43 | disposition home or self-care (01) ==
LOC: ER 20:06
DX: E86.0 Dehydration (principal); R06.00 Dyspnea, unspecified; E11.65 Type 2 diabetes mellitus with hyperglycemia; I25.10 Atherosclerotic heart disease of native coronary artery without angina pectoris; E78.00 Pure hypercholesterolemia, unspecified; I10 Essential (primary) hypertension; M19.90 Unspecified osteoarthritis, unspecified site; G89.29 Other chronic pain; Z86.73 Personal history of transient ischemic attack (TIA), and cerebral infarction without residual deficits; Z90.49 Acquired absence of other specified parts of digestive tract; Z90.710 Acquired absence of both cervix and uterus; Z98.890 Other specified postprocedural states; Z79.82 Long term (current) use of aspirin; Z79.899 Other long term (current) drug therapy; Z88.5 Allergy status to narcotic agent; Z88.2 Allergy status to sulfonamides; Z79.4 Long term (current) use of insulin
CPT/HCPCS: 36415; 71045; 80053; 82948; 83880; 84484; 85025; 85379; 93005; 96365; 99285; J3475; J7030

== ENCOUNTER 2020-05-04 18:05 | Emergency (ER) | payer MEDICARE, MEDICAID ==
[~2020-05-04] VITALS: Ht 157.5 cm; Wt 100.4 kg
[~2020-05-04 18:05] MED LIST changes: -AMIT-189 PO; -ASPI-1071 PO; -CLOT45CR29 TOP; -NITR0.4T51 SL
[2020-05-04 19:41] LABS: BASOPHILS # (AUTO) 0.1 X10'3 (0-0.2); BASOPHILS % (AUTO) 0.9 % (0-1); EOSINOPHILS # (AUTO) 0.1 X10'3 (0-0.9); EOSINOPHILS % (AUTO) 1.2 % (0-6); HEMATOCRIT 41.8 % (35.0-45.0); HEMOGLOBIN 13.8 g/dl (12.0-16.0); LYMPHOCYTES # (AUTO) 1.8 X10'3 (1.1-4.8); LYMPHOCYTES % (AUTO) 22.7 % (21-51); MEAN CORPUSCULAR HEMOGLOBIN 28.5 PG (27.0-31.0); MEAN CORPUSCULAR HGB CONC 33.1 g/dL (33.0-36.5); MEAN CORPUSCULAR VOLUME 86.1 FL (78-98); MEAN PLATELET VOLUME 11.1 FL (7.4-10.4); MONOCYTES # (AUTO) 0.7 X10'3 (0-0.9); MONOCYTES % (AUTO) 8.9 % (2-12); NEUTROPHILS # (AUTO) 5.2 X10'3 (1.8-7.7); NEUTROPHILS % (AUTO) 66.3 % (42-75); PLATELET COUNT 168 X10'3 (140-440); RED BLOOD COUNT 4.85 X10'6 (4.20-5.60); WHITE BLOOD COUNT 7.9 X10'3 (4.5-11.0)
[2020-05-04 19:59] LABS: ALANINE AMINOTRANSFERASE 27 U/L (12-78); ALBUMIN 3.4 G/DL (3.4-5.0); ALBUMIN/GLOBULIN RATIO 0.9 (1.1-1.5); ALKALINE PHOSPHATASE 108 IU/L (46-116); ANION GAP 7 (8-16); ASPARTATE AMINO TRANSFERASE 22 U/L (10-37); BILIRUBIN,TOTAL 0.6 MG/DL (0.1-1.0); BLOOD UREA NITROGEN 19 MG/DL (7-18); BUN/CREATININE RATIO 13.8 (6.6-38.0); CHLORIDE 105 MMOL/L (99-107); CREATININE 1.38 MG/DL (0.40-0.90); GLUCOSE 285 MG/DL (70-104); POTASSIUM 4.1 MMOL/L (3.5-5.1); SODIUM 139 MMOL/L (135-145); TOTAL CARBON DIOXIDE 26.7 MMOL/L (24-32); TOTAL PROTEIN 7.1 G/DL (6.4-8.2); eGFR 37 ML/MIN
--- NOTE | 2020-05-04 20:08 | NUR ---
PT STATES SHE WOULD LIKE TO GO HOME "IF THE DOCTOR IS OKAY WITH THAT BECAUSE I WANT TO TAKE MY NIGHT MEDS ON TIME." PT THEN STATES THAT SHE TAKES ELIQUIS. EDMD OHLFS INFORMED AND HE IS GOING TO ASSESS PT NOW. NO NEW ORDERS AT THIS TIME. PT REPORTS 1/10 PAIN IN FLANK "DUE TO MY UTI I HAVE."
[2020-05-04] MEDS ORDERED: cephalexin 250mg capsule PO ONE (20:20)
[2020-05-04] MEDS ORDERED: CEPH500C5 PO (20:24)
[2020-05-04 20:36] VITALS: BP 145/87
== END 2020-05-04 20:35 | disposition home or self-care (01) ==
LOC: ER 18:06
DX: N39.0 Urinary tract infection, site not specified (principal); M25.512 Pain in left shoulder; M54.5 Low back pain; V87.7XXA Person injured in collision between other specified motor vehicles (traffic), initial encounter; Y93.89 Activity, other specified; Y92.89 Other specified places as the place of occurrence of the external cause; Y99.8 Other external cause status
CPT/HCPCS: 36415; 71045; 80053; 83880; 84484; 85025; 93005; 99285

== ENCOUNTER 2022-03-05 18:01 | Emergency (ER) | payer MEDICARE, MEDICAID ==
[~2022-03-05] VITALS: Ht 157.5 cm; Wt 127.3 kg
[~2022-03-05 18:01] MED LIST changes: +FURO20TA4 PO; -INSU100V36 SQ; +LEVO75TA7 PO; -MULT-1180 PO; -NORCO10T PO; +NOVLG SQ; +POTA10TA PO; -SYN0.075T PO; +TRAM50TA2 PO
[2022-03-05 18:39] LABS: BASOPHILS # (AUTO) 0.1 X10'3 (0-0.2); EOSINOPHILS # (AUTO) 0.1 X10'3 (0-0.9); EOSINOPHILS % (AUTO) 0.9 % (0-6); HEMATOCRIT 42.9 % (35.0-45.0); HEMOGLOBIN 14.3 g/dl (12.0-16.0); LYMPHOCYTES # (AUTO) 2.1 X10'3 (1.1-4.8); LYMPHOCYTES % (AUTO) 24.8 % (21-51); MEAN CORPUSCULAR HEMOGLOBIN 28.4 PG (27.0-31.0); MEAN CORPUSCULAR HGB CONC 33.3 g/dL (33.0-36.5); MEAN CORPUSCULAR VOLUME 85.2 FL (78-98); MEAN PLATELET VOLUME 10.6 FL (7.4-10.4); MONOCYTES # (AUTO) 0.7 X10'3 (0-0.9); NEUTROPHILS # (AUTO) 5.5 X10'3 (1.8-7.7); NEUTROPHILS % (AUTO) 65.3 % (42-75); PLATELET COUNT 182 X10'3 (140-440); RED BLOOD COUNT 5.04 X10'6 (4.20-5.60); RED CELL DISTRIBUTION WIDTH 14.3 % (11.5-14.5); WHITE BLOOD COUNT 8.4 X10'3 (4.5-11.0)
[2022-03-05 19:02] LABS: ALANINE AMINOTRANSFERASE 29 U/L (12-78); ALBUMIN 3.2 G/DL (3.4-5.0); ALBUMIN/GLOBULIN RATIO 0.8 (1.1-1.5); ALKALINE PHOSPHATASE 110 IU/L (46-116); ANION GAP 11 (8-16); ASPARTATE AMINO TRANSFERASE 25 U/L (10-37); BILIRUBIN,TOTAL 0.5 MG/DL (0.1-1.0); BLOOD UREA NITROGEN 18 MG/DL (7-18); BUN/CREATININE RATIO 15.3 (6.6-38.0); CHLORIDE 105 MMOL/L (99-107); CREATININE 1.18 MG/DL (0.40-0.90); GLUCOSE 277 MG/DL (70-104); SODIUM 142 MMOL/L (135-145); TOTAL CARBON DIOXIDE 26.5 MMOL/L (24-32); TOTAL PROTEIN 7.3 G/DL (6.4-8.2); eGFR 44 ML/MIN
[2022-03-05] MEDS ORDERED: furosemide 20MG tablet PO ONE (20:25)
[2022-03-05] MEDS ORDERED: POTA-207 PO (20:27)
[2022-03-05] MEDS ORDERED: FURO-150 PO (20:27)
[2022-03-05] MEDS ORDERED: POTA10CA44 PO (20:27)
[2022-03-05 20:30] VITALS: BP 148/87
== END 2022-03-05 20:58 | disposition home or self-care (01) ==
LOC: ER 18:01
DX: R60.0 Localized edema (principal); G89.29 Other chronic pain; M25.552 Pain in left hip; I48.91 Unspecified atrial fibrillation; E78.00 Pure hypercholesterolemia, unspecified; M19.90 Unspecified osteoarthritis, unspecified site; E11.9 Type 2 diabetes mellitus without complications; I25.10 Atherosclerotic heart disease of native coronary artery without angina pectoris; Z86.73 Personal history of transient ischemic attack (TIA), and cerebral infarction without residual deficits; Z87.440 Personal history of urinary (tract) infections; Z86.19 Personal history of other infectious and parasitic diseases; Z90.49 Acquired absence of other specified parts of digestive tract; Z90.710 Acquired absence of both cervix and uterus; Z88.5 Allergy status to narcotic agent; Z88.2 Allergy status to sulfonamides; Z79.4 Long term (current) use of insulin; Z79.899 Other long term (current) drug therapy
CPT/HCPCS: 36415; 71045; 80053; 83880; 84484; 85025; 93005; 99285

== ENCOUNTER 2024-04-27 14:21 | Outpatient (CLI) | payer OTHER, MEDICAID ==
[~2024-04-27 14:21] MED LIST changes: +ATOR20TA66 PO; +CHOL20004 PO; -FURO20TA4 PO; -POTA10TA PO; +SEMA1PEN3 SUBCUT; -TRAM50TA2 PO
== END 2024-04-27 23:59 | disposition home or self-care (01) ==
LOC: CARD DIAG 14:21
PROVIDERS: ATTEND Student in an Organized Health Care Education/Training Program
DX: I37.1 Nonrheumatic pulmonary valve insufficiency (principal); I51.7 Cardiomegaly; R07.89 Other chest pain
CPT/HCPCS: 93306

== ENCOUNTER 2025-04-30 15:02 | Inpatient (IN) | payer MEDICARE, MEDICAID ==
[~2025-04-30] VITALS: Ht 154.9 cm; Wt 74.5 kg
--- NOTE | 2025-04-30 15:35 | ELECTROCARDIOGRAPH REPORT ---
[facility] Test Date: 2025-04-30 Test Time: 15:33:53 Pat Name: RIZWANA HARVEY Department: EMERGENCY ROOM Patient ID: [facility]-[id number] Room: Gender: F Security Assessor: GI : 1945 Requested By: DONNIE MARVIN Order Number: [id number] Reading MD: Dr. Kt Hugo Measurements Intervals [place] Rate: 79 P: 0 [place]: 191 QRS: 65 QRSD: 93 T: 28 QT: 389 QTc: 447 Interpretive Statements Sinus rhythm Low voltage, precordial leads Electronically Signed On 04-30-2025 20:30:[address] Kt Hugo Please click the below link to view image of tracing.
--- NOTE | 2025-04-30 15:44 | Physician Documentation ---
History of Present Illness ~ Chief Complaint: Hip pain Stated Complaint: HIP PAIN Time Seen by MD: 17:28 OK to notify your PCP?: Yes Primary Medical Doctor: ANUJA Source: patient, EMS Mode of Arrival: EMS Exam Limitations: no limitations HPI This is an 80-year-old female who presents back to the emergency department via EMS for continued hip pain, patient was seen this morning for the same and discharged to follow up with an orthopedist, patient reports pain was intolerable at home and called her primary care who directed her back to the em ergency department. Patient additionally reports that over the past 3-4 days she has been experiencing intermittent nonradiating point pain to her left upper chest, patient reports episodes of last 2-3 minutes and then completely resolve without any other associated symptoms. Patient is quite anxious in triage. I ASKED HER WHETHER SHE IS TAKING ANY THING STRONGER THAN TYLENOL SHE SAYS SHE HAS NOT TAKING ANYTHING BECAUSE PAIN MEDICINE MAKES HER NAUSEATED. NO NEW TRAUMA OR INJURIES. I DID REVIEW HER PELVIC CTA AND IT SHOWS POSTERIOR ASPECT OF THE HIP JOINT HAS OSTEOARTHRITIS CHANGES. HPI by attending EDMD Dr. Hugo: This patient is a 80 y/o female who presents to ED with chief complaint of left sided hip pain. Patient was seen here yesterday for similar symptoms. Patient was discharged here last night, and instructed to follow up with orthopedics. Instead, patient called her PCP, who told her to return to ER for her worsening hip pain. She has been complaining of worsening pain, though she refuses any pain meds or treatment. She denies any fevers. Patient denies any other associated symptoms at this time. Patient denies any other alleviating or exacerbating factors. Medication Reconciliation Allergies: Coded Allergies: morphine (Verified Allergy, Severe, PT TOLERATES DILAUDID FINE, 04/30/25) Sulfa (Sulfonamide Antibiotics) (Verified Allergy, Unknown, 04/30/25) Scheduled Apixaban (Eliquis), 1 TAB PO Q12H, (Reported) Cholecalciferol (Vitamin D), 1 TAB PO DAILY, (Reported) Cholecalciferol (Vitamin D3) (Vitamin D3), 1 TAB PO DAILY, (Reported) Insulin Aspart (Novolog), 0 SQ TIDWM, (Reported) Insulin Glargine,Hum.rec.anlog* (Lantus*), 32 UNITS SQ HS, (Reported) Levothyroxine Sodium (Levothyroxine Sodium), 1 TAB PO DAILY, (Reported) Metoprolol Succinate (Metoprolol Succinate), 25 MG PO HS, (Reported) Rosuvastatin Calcium (Rosuvastatin Calcium), 1 TAB PO HS, (Reported) Semaglutide (Ozempic), 2 MG SUBCUT Q7D, (Reported) Miscellaneous Medications Semaglutide (Ozempic), (Reported) Discontinued Medications Atorvastatin Calcium (Atorvastatin Calcium), 20 MG PO DAILY Discontinued Reason: patient no longer taking Past Medical History Past Medical History: CVA/TIA/Stroke, Atrial Fibrillation, Coronary Artery Disease, Congestive Heart Failure, High Cholesterol, Hypertension, Hepatitis C, Chronic Kidney Disease, UTI, Diabetes, Hypothyroidism, Arthritis, Chronic Pain, Chronic Back Pain Past Surgical History: appendectomy, cholecystectomy, hysterectomy, orthopedic surgeries Patient History: (CAD) Coronary arteriosclerosis (DM Type 2) Diabetes mellitus type 2 ([place]) Myocardial infarction Smoking Status: Never smoker Alcohol Use: None Drug Use: none Lives with: Spouse Lives In: Home Occupation: retired Review of Systems All Other Systems at this time: Reviewed and Negative ROS As stated above in the HPI, otherwise all systems are reviewed and negative. Physical Exam Vital Signs: RN Vital Signs have been reviewed: Yes, Temperature: 96.8, Source: Temporal, Heart Rate: 80, Respiratory Rate: 16, BP: 132/59, Pulse Oximetry: 99, Weight: 74.500 Oxygen Flow Rate: 0 Physical Exam REVIEWED VITAL SIGNS AND THEY ARE WELL WITHIN NORMAL RANGE. CONST: PATIENT IS IN PAIN BUT NOT IN ACUTE CARDIOPULMONARY DISTRESS HEAD: ATRAUMATIC EYES: NORMAL CONJUNCTIVA ENT: NORMAL EXTERNAL EARS, NOSE AND MOUTH. MOIST MUCOUS MEMBRANES NECK: FULL RANGE OF MOTION. NO MENINGISMUS RESP: CLEAR TO AUSCULTATION BILATERALLY. NORMAL WORK OF BREATHING CARDIO: REGULAR RATE AND RHYTHM, NO MURMURS. SKIN WELL PERFUSED ABD: SOFT, NON-TENDER, NON-DISTENDED. NORMAL BOWEL SOUNDS. NO REBOUND OR GUARDING SKIN: NO PETECHIAE OR RASHES. WARM AND DRY BACK: NO MIDLINE OR FLANK TENDERNESS EXT: NO CYANOSIS, OR EDEMA THERE IS NO SHORTENING OR EXTERNAL ROTATION OF THE HIP. HIS JOINT MOVEMENT IS PAINFUL. NEURO: AWAKE AND ALERT PSYCH: NORMAL MOOD AND AFFECT EXAM BY ATTENDING EDMD DR. HUGO: General: The patient is uncomfortable appearing, anxious, and tearful. Moderate distress secondary to pain. Otherwise she appears well developed, well nourished and nontoxic. Skin: [place], warm and dry with no rashes. HEENT: Head was normocephalic and atraumatic. Eyes - pupils equal, round, reactive to light and accommodation. Extraocular movements were intact. Conjunctivae were nonicteric. The mouth and oropharynx were clear with moist mucous membranes. There were no pharyngeal exudates or erythema. Neck: Supple and nontender. There was no jugular venous distention, lymphadenopathy, thyromegaly or masses. Chest: Clear to auscultation bilaterally without wheezes, rales or rhonchi. No accessory muscle use. No dullness to percussion. Heart: Rate regular and rhythmic. S1, S2. No murmurs. Palpation of the chest wall was normal. No rubs or thrills. Abdomen: Soft, nontender and nondistended. Positive bowel sounds. No guarding or rebound. No hepatosplenomegaly or palpable masses. Back: No midline spinal tenderness to palpation. Left buttocks is tender. Straight leg test positive at 30. Extremities: Trace edema to bilateral lower extremities which are also slightly cyanotic. Surgical scars noted to bilateral knees. Otherwise the patient moves all extremities. Pulses were equal and symmetric. Neurologic: Motor and sensation grossly intact. A & O x4. Psychologic: Anxious. Teaful. Otherwise the patient was oriented to person, place and time. Progress Progress Note 1929: Case discussed with on-call orthopedist, Dr. Peraza who is aware and will see patient. 2046: Paged Hospitalist 2116: Case discussed with hospitalist who agrees to evaluate patient for admission. Results/Orders Reviewed/noted all lab results: Yes Results/Orders Orders - BILLY HUGO MD Culture Blood (04/30/25 20:04) Page Hospitalist (04/30/25 20:47) Fill Out Med Reconciliation (04/30/25 20:47) Echocardiogram (04/30/25 20:51) Electrocardiogram (04/30/25 20:51) Completed Orders - BILLY HUGO MD Hydrocodone/Apap 5/325mg Tab ([place] 5/32 (04/30/25 19:05) Cbc/Diff (04/30/25 20:04) MG (04/30/25 20:04) Procalcitonin (04/30/25 20:04) BMP (04/30/25 20:04) Lacticsepsis (04/30/25 20:04) C-Reactive Protein (04/30/25 20:04) ESR (04/30/25 20:04) Hydromorphone 0.5 Mg/0.5 Ml/Pf (Dilaudid (04/30/25 20:15) Pt Inr (04/30/25 20:51) PTT (04/30/25 20:51) Electrocardiogram (04/30/25 20:51) PBNP (04/30/25 20:19) Hgb A1c (04/30/25 20:19) Vital Signs 04/30/25 04/30/25 04/30/25 04/30/25 15:13 18:20 18:25 18:48 Temp 96.8 97.4 Pulse 80 85 Resp 16 20 20 20 B/P (MAP) 132/59 158/118 (131) Pulse Ox 99 98 O2 Flow Rate 0 0 04/30/25 04/30/25 04/30/25 04/30/25 19:16 19:17 19:39 20:39 Pulse 82 Resp 20 20 16 25 B/P (MAP) 146/71 (96) Pulse Ox 97 04/30/25 04/30/25 20:39 20:49 Temp 97.9 Pulse 77 Resp 24 18 B/P (MAP) 172/90 (117) Pulse Ox 99 O2 Flow Rate 0 Laboratory Tests Test 04/30/25 20:19 White Blood Count 6.5 Red Blood Count 4.62 Hemoglobin 13.7 Hematocrit 39.8 Mean Corpuscular Volume 86.0 Mean Corpuscular Hemoglobin 29.5 Mean Corpuscular Hemoglobin Concent 34.3 Red Cell Distribution Width 14.6 H Platelet Count 174 Mean Platelet Volume 10.4 Neutrophils (%) (Auto) 90.1 H Lymphocytes (%) (Auto) 8.6 L Monocytes (%) (Auto) 0.8 L Eosinophils (%) (Auto) 0 Basophils (%) (Auto) 0.5 Neutrophils # (Auto) 5.9 Lymphocytes # (Auto) 0.6 L Monocytes # (Auto) 0.0 Eosinophils # (Auto) 0.0 Basophils # (Auto) 0.0 CBC Comment Erythrocyte Sedimentation Rate 12 Prothrombin Time 11.6 INR International Normalized Ratio 1.1 Activated Partial Thromboplast Time 28 Coagulation Comments Sodium Level 139 Potassium Level 4.7 Chloride Level 105 Carbon Dioxide Level 24.7 Anion Gap 9 Blood Urea Nitrogen 32 H Creatinine 1.31 H Estimated GFR/1.73 m2 39 BUN/Creatinine Ratio 24.4 H Glucose Level 353 H Hemoglobin A1c 7.4 H Lactic Acid Level 1.4 Calcium Level 9.1 Magnesium Level 1.8 C-Reactive Protein 0.19 Pro-B-Type Natriuretic Peptide 389 Albumin 3.3 L Procalcitonin < 0.05 Chemistry Comments Re-Evaluation Re-Evaluation : Re-Evaluation: Improved Progress Patient was seen and examined. Patient is given reassurance. Patient presentation wax and wanes tearful at one moment later completely lucid with conversations with family members at the next moment. Patient received pain medications this is a repeat visit septic joint was considered laboratory work was obtained and was reassuring. Patient needs most likely hip replacement also having a flare-up pain. I reviewed the case briefly with Dr. Peraza who may be able to provide some relief. Laboratory work was then ordered. Patient's CBC is unchanged from the day prior with no anemia no leukocytosis. Sed rate is 12 she is reassuring procalcitonin is negative lactic acid is negative at 1.4 patient's chemistry also remains unchanged from the day prior with some mild renal insufficiency BUN 32 creatinine 1.32. Patient once again received Toradol for the prior physician including Zofran. Patient was formally seen by me Dilaudid 0.5 mg was then given to her. I then contacted both Orthopedic surgery in the hospitalist who kindly agreed to admit the patient for further workup and care. Continuous supervisor warping department interpretation shows normal sinus rhythm heart rate 80s, no ectopy, normal, my interpretation. Pulse oximetry monitor interpretation shows normal oxygenation 99% room air, normal, my interpretation EKG/XRAY/CT/US/VASC/MRI EKG : Additional Comment [facility] [address] , [place], [place] - [address] ELECTROCARDIOGRAM Patient: RIZWANA HARVEY Medical Record: [id number] [facility] : 1945, Age: 80Sex: F Location: ER Patient Status: REG ER Service Date/Time: Ordering Physician: DONNIE MARVIN Exam Name: ELECTROCARDIOGRAM Technologist: [facility] Test Date: 2025-04-30 Test Time: 15:33:53 Pat Name: RIZWANA HARVEY Department: EMERGENCY ROOM Patient ID: [facility]-[id number] Room: 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 Billy Hugo Measurements Intervals [place] Rate: 79 P: 0 DC: 191 QRS: 65 QRSD: 93 T: 28 QT: 389 QTc: 447 Interpretive Statements Sinus rhythm Low voltage, precordial leads Electronically Signed On 04-30-2025 20:30:[address] Billy Hugo Please click the below link to view image of tracing. EKG Date and Time:04/30/25 153 Electronically Signed by: BILLY HUGO MD Date and Time: 04/30/252029 NO PRIMARY CARE PROVIDER~ cc: ~ Medical Decision Making Additional info obtained from: old records Findings MSE performed in triage and patient returned to ED lobby by nursing staff to await available ED room. DURING THE PHYSICAL EXAMINATION, THE FINDINGS SUGGESTIVE OF ACUTE LIFE- THREATENING CONDITION SUCH JVD, TRACHEAL DEVIATION, ACIDOTIC BREATHING, NOISY STRIDOROUS BREATH SOUNDS, PULSES PARADOXUS, MUFFLED HEART SOUNDS, UNEQUAL BREATH SOUNDS, ABDOMINAL RIGIDITY AND REBOUND TENDERNESS, FOCAL NEUROLOGICAL DEFICITS, COOL CLAMMY SKIN, SEVERE HYPOTENSION, SEVERE TACHYCARDIA OR BRADYCARDIA ARE ABSENT. THE PATIENT IS NOT IN ACUTE CARDIOPULMONARY DISTRESS BUT IN JOINT PAIN. I THINK IT IS A METAL PAIN CONTROL AND MOBILIZATION. Differential Dx:Considerations: Include: Avascular necrosis, Arthritis, Arthritis-Rheumatoid, Arthritis-Septic, Bursitis, Dislocation, DJD, Fracture- femur, Fracture-hip, Fracture-open, Fracture-pelvis, Gout, Neurovascular injury, Slip capital femoral epip, Sprain, Transient synovitis, Other Departure Time of Disposition: 21:07 Disposition: 09 ADMITTED INPATIENT Admitted to Inpatient Unit: yes, to hospitalist Admission Level of Care: Ortho with Tele Impression: Primary Impression: Hip pain Qualified Codes: M25.552 - Pain in left hip Additional Impression: Osteoarthritis Qualified Codes: M16.12 - Unilateral primary osteoarthritis, left hip Condition: Guarded Referrals: NO PRIMARY CARE PROVIDER (PCP) Education Educated: Patient Educated regarding: diagnosis, prognosis, need for follow up Signature Scribe Signature: Scribed for Billy Hugo MD by Harriett Coles. 04/30/25 21:06 Attestation: The note accurately reflects work and decisions made by me.Billy Hugo MD 05/01/25 07:20 DONNIE MARVIN Apr 30, 2025 15:44 DIPIKA MULLINS MD Apr 30, 2025 18:02 BILLY HUGO MD Apr 30, 2025 21:08
[2025-04-30] MEDS ORDERED: CHOL20003 PO (18:34)
[2025-04-30] MEDS ORDERED: ROSU10TA72 PO (18:34)
[2025-04-30] MEDS ORDERED: SEMA2PEN (18:34)
[2025-04-30] MEDS: ketorolac trometh 30MG/ML vial 30 MG/ML VIAL IM ONE (18:48)
[2025-04-30] MEDS: ondansetron 4mg rapidly disintigrating tab PO ONE (18:48)
[2025-04-30] MEDS: HYDROcodone/acetaminophen 5mg/325mg tablet PO ONE (19:16)
[2025-04-30 20:28] LABS: MEAN PLATELET VOLUME 10.4 FL (7.4-10.4); RED CELL DISTRIBUTION WIDTH 14.6 % (11.5-14.5)
[2025-04-30] MEDS: HYDROmorphone inj. 0.5 MG/0.5 ML DISP.SYRIN IV ONE (20:39)
[2025-04-30 20:41] LABS: CREATININE 1.31 MG/DL (0.40-0.90); TOTAL CARBON DIOXIDE 24.7 MMOL/L (24-32); eCRCL 26 ML/MIN; eGFR 39 ML/MIN
--- NOTE | 2025-04-30 21:00 | ELECTROCARDIOGRAPH REPORT ---
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 Billy Bean Measurements Intervals [place] Rate: 74 P: 25 OR: 227 QRS: 74 QRSD: 93 T: 18 QT: 403 QTc: 448 Interpretive Statements Sinus rhythm Prolonged OR interval Low voltage, precordial leads Baseline wander in lead(s) I,III,aVL,aVF Electronically Signed On 04-30-2025 22:52:[address] Billy Bean Please click the below link to view image of tracing.
[2025-04-30 21:12] LABS: APTT 28 SECONDS (22-32); INR 1.1 INR
[2025-04-30 21:21] LABS: PRO BRAIN NATRIURETIC PEPTIDE 389 PG/ML (0-450)
[2025-04-30] MEDS ORDERED: potassium Cl 20 mEq SR tablet PO PRN ×2 (21:25)
[2025-04-30] MEDS ORDERED: magnesium sulf-water 4G/100mL 100 ML IV PRN (21:25)
[2025-04-30] MEDS ORDERED: magnesium Cl slow-release 64mg tablet PO PRN (21:25)
[2025-04-30] MEDS ORDERED: magnesium sulf-water 2g/50mL 50 ML IV PRN (21:25)
[2025-04-30] MEDS ORDERED: potassium Cl 40MEQ/1/2NS 520ml 520 ML IV PRN (21:25)
[2025-04-30] MEDS ORDERED: morphine 4 MG/ML inj SYRINge IV PRN ×2 (21:25)
[2025-04-30] MEDS ORDERED: mag hydrox/Alum hydrox/simeth 30ml oral suspension PO PRN (21:25)
--- NOTE | 2025-04-30 21:45 | HISTORY AND PHYSICAL-Residence ---
History & Physical Providers to CC Resident Creating Document: LESTER PEREZ RES ~ History of Present Illness Primary Medical Doctor: CORINA Reason for Admit\Complaint: Severe left hip pain History of Present Illness 80 year old female with PMH of OA, Atrial fib, HF with unknown EF presented to the ER with complaints of severe left hip pain radiating the left knee over the last 8-9 days. She also presented to the ER with similar complaints yesterday and received dilaudid for pain as she reports inability to take any other pain medications; her pain improved and was controlled and hence, she was discharged home. She came back in today due to the recurrence of the similar pain. Denies any recent falls or trauma. A CT of the pelvis performed yesterday reveals left hip OA. There has been discussion with the primary care regarding left hip injections and PT but she declines the injections due to concerns on side effects with terms to weight gain and uncontrolled DM; and she has not checked herself into PT yet. She also declines surgery as she is concerned with her age and comorbidities. Allergies: Coded Allergies: morphine (Verified Allergy, Severe, PT TOLERATES DILAUDID FINE, 04/30/25) Sulfa (Sulfonamide Antibiotics) (Verified Allergy, Unknown, 04/30/25) Home Medications Home Medications Active Reported Vitamin D3 (Cholecalciferol (Vitamin D3)) 50 Mcg (2000 Unit) Tablet 1 Tab PO DAILY Ozempic (Semaglutide) 2 Mg/0.75 Ml (8 Mg/3 Ml) Pen.injctr Rosuvastatin Calcium 10 Mg Tablet 1 Tab PO HS Ozempic (Semaglutide) 1 Mg/0.75 Ml (4 Mg/3 Ml) Pen.injctr 2 Mg SUBCUT Q7D 30 Days Vitamin D (Cholecalciferol) 2,000 Unit Tablet 1 Tab PO DAILY 30 Days Novolog (Insulin Aspart) 100 Unit/1 Ml Insuln.pen 0 SQ TIDWM Levothyroxine Sodium 75 Mcg Tablet 1 Tab PO DAILY Metoprolol Succinate 25 Mg Tab.sr.24h 25 Mg PO HS Eliquis (Apixaban) 5 Mg Tablet 1 Tab PO Q12H 30 Days Lantus* (Insulin Glargine) 100 Unit/1 Ml Vial 32 Units SQ HS Past Medical History Past Medical History Atrial fibrillation, Insulin-dependent Type 2 DM, HF with unknown EF, obesity Past Surgical History Surgical History Comment Tonsillectomy, B/L knee replacement, Right hip replacement, hysterectomy without salpingo-oophoreectomy for uterine fibroids, bunionectomies Family History Family History: (CAD) Coronary arteriosclerosis (DM Type 2) Diabetes mellitus type 2 ([place]) Myocardial infarction Past Social History Social History Comment Nonsmoker. No alcohol use. No other illicit drug abuse Lives at home with the daughter Smoking: Non-Smoker Alcohol Use: None Drug Use: None Lives with: Spouse Lives In: Home Occupation: retired ROS Constitutional: Reports: no symptoms reported ENT: Reports: no symptoms reported Respiratory: Reports: no symptoms reported Cardiovascular: Reports: no symptoms reported Gastrointestinal: Reports: no symptoms reported Genitourinary: Reports: no symptoms reported Female Genitalia: Reports: no reported symptoms Neurological: Reports: no symptoms reported Musculoskeletal: Reports: pain Integumentary: Reports: no symptoms reported Allergic/Immunologic: Reports: no symptoms reported Hematologic/Lymphatic: Reports: no symptoms reported Endocrine: Reports: no symptoms reported Psychiatric: Reports: no symptoms reported Exam Vitals: Vital Signs Date Time Temp Pulse Resp B/P (MAP) Pulse Ox O2 Delivery O2 Flow Rate FiO2 04/30/25 20:49 18 04/30/25 20:39 97.9 77 172/90 (117) 99 0 General: General: Awake and Alert, no acute distress. HEENT: Conjunctiva pink, Sclera clear, Mucus Membranes moist. No teeth Resp: Unlabored. Lungs clear to auscultation bilaterally. Heart: Irregularly irregular, normal S1 and S2 without murmur, rub or gallop. Abdomen: Soft and non tender no organomegaly Extremities: No cyanosis,clubbing or edema. Difficulty moving bilateral lower extremities due to pain. Extremely sensitive to mild pain Skin: Warm and Dry. Diagnostic Data Last Recorded Lab Results: 04/30/25201804/30/252018 Diagnostic Data: Laboratory Tests Test 04/30/25 20:19 Prothrombin Time 11.6 SECONDS (9.0-12.0) INR International Normalized Ratio 1.1 INR Activated Partial Thromboplast Time 28 SECONDS (22-32) Coagulation Comments Advance Care Planning Advanced Care plannin - 30 Minutes Additional Plan Left hip OA: Pelvis CT from 04/30/2025- left hip joint space narrowing and osteophyte formation Pain management Dilaudid 0.1 and 0.2 mg q.4 hours for moderate and severe pain respectively Lidocaine patch locally Counseled regarding the need for physical therapy and pain management lidocaine patch evaluating to undergo hip joint injection/surgical intervention Explained risks and benefits of corticosteroid hip joint injection PT eval and treat in a.m. to assess for gait Atrial fibrillation: No RVR Continue home medication of metoprolol and eliquis Insulin-dependent type 2 diabetes mellitus: A1c 7.4 Home medications include insulin and Ozempic Started hyperglycemia/hypoglycemia protocol Hypothyroidism: Levothyroxine 75 mcg to be continued Repeat TSH ordered Lines: PIV Code status: Full code Diet: Carb controlled DVT prophylaxis: Benigno Perez PGY3, Internal medicine resident I saw and discussed the case with the resident team I agree with assessment and plan as documented Date of Service: Apr 30, 2025 Billing Provider: ROSEANNE RAMIREZ MD, DEEPANJALI, RES Apr 30, 2025 21:45 ROSEANNE RAMIREZ MD May 01, 2025 08:45
[2025-04-30] MEDS: metoprolol succinate 25mg (24-HOUR) SR. Tablet PO STA (23:56)
[2025-04-30] MEDS: magnesium hydroxide 30ml (MOM) UD suspension PO PRN (23:56)
[2025-05-01] VITALS (9 sets, daily range): BP systolic 109–140; BP diastolic 51–71; PULSE 56–67; RESP 16–22; TEMP 97.4–97.8; O2SAT 20–100
[2025-05-01] MEDS ORDERED: glucagon, human recombinant 1mg kit SUBCUT PRN (01:00)
[2025-05-01] MEDS ORDERED: DEXTROSE 15 GM of carb/4 tabs (each vial/BOTTLE has 4 tablets) PO PRN ×2 (01:00)
[2025-05-01] MEDS ORDERED: dextrose 50%-water 50ml dispensing syringe IV PRN ×2 (01:00)
[2025-05-01] MEDS: HYDROmorphone inj. 0.5 MG/0.5 ML DISP.SYRIN IV PRN (01:41)
[2025-05-01 06:30] LABS: CHOL/HDL RATIO 2.5 (0.00-4.99); CREATININE 1.35 MG/DL (0.40-0.90); LDL CHOLESTEROL 78 MG/DL (50-100); TOTAL CARBON DIOXIDE 29.3 MMOL/L (24-32); eCRCL 25 ML/MIN; eGFR 38 ML/MIN
[2025-05-01 06:31] LABS: MEAN PLATELET VOLUME 11.1 FL (7.4-10.4); RED CELL DISTRIBUTION WIDTH 14.3 % (11.5-14.5)
[2025-05-01] MEDS: K and/or MAG REPLACEMENT MC SCH (08:00)
[2025-05-01] MEDS ORDERED: heparin, porcine 5000 units/ml vial SQ SCH (08:00)
[2025-05-01] MEDS: levoTHYROXINE 75mcg tablet PO SCH (08:00)
[2025-05-01] MEDS: INSULIN LISPRO 100 UNIT/ML INSULN.PEN MULTI-DOSE SQ SCH ×4 (08:06→19:45)
[2025-05-01] MEDS: docusate sod 100mg capsule PO SCH (08:08)
[2025-05-01] MEDS ORDERED: AMIO100T PO (08:17)
--- NOTE | 2025-05-01 09:10 | CONSULTATION REPORT ---
History of Present Illness Providers to CC ~ Reason for Admit\Admit Dx: Severe left hip pain Refering MD: Dr Mi History of Present Illness This is an 80-year-old woman who has severe left hip pain secondary to arthritis. She was admitted for intractable pain. She has had this issue before then it has been referred to Orthopedics for hip replacement but patient thinks that she maybe too old Allergies: Coded Allergies: morphine (Verified Allergy, Severe, PT TOLERATES DILAUDID FINE, 04/30/25) Sulfa (Sulfonamide Antibiotics) (Verified Allergy, Unknown, 04/30/25) Home Medications Home Medications Active Reported Pacerone (Amiodarone HCl) 100 Mg Tablet 1 Tab PO DAILY Vitamin D3 (Cholecalciferol (Vitamin D3)) 50 Mcg (2000 Unit) Tablet 1 Tab PO DAILY Ozempic (Semaglutide) 2 Mg/0.75 Ml (8 Mg/3 Ml) Pen.injctr Rosuvastatin Calcium 10 Mg Tablet 1 Tab PO HS Ozempic (Semaglutide) 1 Mg/0.75 Ml (4 Mg/3 Ml) Pen.injctr 2 Mg SUBCUT Q7D 30 Days Vitamin D (Cholecalciferol) 2,000 Unit Tablet 1 Tab PO DAILY 30 Days Novolog (Insulin Aspart) 100 Unit/1 Ml Insuln.pen 0 SQ TIDWM Levothyroxine Sodium 75 Mcg Tablet 1 Tab PO DAILY Metoprolol Succinate 25 Mg Tab.sr.24h 25 Mg PO HS Eliquis (Apixaban) 5 Mg Tablet 1 Tab PO Q12H 30 Days Lantus* (Insulin Glargine) 100 Unit/1 Ml Vial 32 Units SQ HS Past Family History Family History: (CAD) Coronary arteriosclerosis (DM Type 2) Diabetes mellitus type 2 ([place]) Myocardial infarction Physical Exam Last Vital Signs Recorded: Temperature: 97.8, Source: Oral, Heart Rate: 57, Respiratory Rate: 18, BP: 140/66, Pulse Oximetry: 95, Weight: 74.500 General Appearance: alert, no apparent distress Extremities Examination of the left lower extremity is benign. There was some mild discomfort with hip motion. No shortening or evidence of sepsis Results Results/Orders Results/Orders CT scan shows left hip arthritis and the presence of a right hip arthroplasty Diagram Lab Result Diagram: 05/01/2552105/01/25521 Assessment/Plan Problems/Diagnosis: (1) DJD (degenerative joint disease) Additional Plan Pain management nonoperative treatment is indicated. He will need to be referred to a hip replacement surgeon for re-evaluation if she so desires. Problem Qualifiers (1) DJD (degenerative joint disease): Qualified Codes: M16.12 - Unilateral primary osteoarthritis, left hip SHANE ORTIZ Jr., MD May 01, 2025 09:10
[2025-05-01] MEDS ORDERED: amiodarone 100mg tablet PO SCH (09:19)
[2025-05-01] MEDS: amiodarone 100mg tablet PO SCH (10:51)
[2025-05-01 15:21] LABS: LEUKOCYTE ESTERASE ,URINE NEGATIVE (Neg); NITRITES, URINE POSITIVE (Neg); OCCULT BLOOD,URINE NEGATIVE (Neg)
[2025-05-01] MEDS: normal saline 1000ml 1,000 ML IV SCH (15:21)
[2025-05-01 15:24] LABS: CREATININE,URINE RANDOM 106.0 MG/DL; TOTAL PROTEIN,URINE RANDOM 19.6 MG/DL
[2025-05-01 15:40] LABS: OSMOLALITY UA 842.0 MOSM/K (50-1400)
[2025-05-01 15:57] LABS: UA COLLECTION TYPE NON-SPECIFIED
[2025-05-01 16:00] LABS: SQUAMOUS EPITHELIAL CELL,UR FEW /LPF (FEW); YEAST MODERATE /HPF (NEGATIVE)
--- NOTE | 2025-05-01 16:32 | PROGRESS NOTE- Residence ---
Progress Note - Resident Providers to CC Resident Creating Document: MAXX ORTIZ RES ~ Antibiotic Timeout Antibiotic Ordered?: No Subjective Patient was examined at bedside. Patient still reports left hip pain radiating to her left knee with intensity of 7/10 and aggravated by moving. Objective Vital Signs Date Time Temp Pulse Resp B/P (MAP) Pulse Ox O2 Delivery O2 Flow Rate FiO2 05/01/25 14:09 18 05/01/25 11:09 97.8 67 109/51 (70) 97 Room Air 05/01/25 08:30 0.0 21 Result Diagram: 05/01/2552105/01/25521 General: Alert, awake, oriented with no acute distress HEENT: Conjunctiva pink, Sclera clear, Mucus Membranes moist, no JVD. No teeth Resp: Unlabored. Lungs clear to auscultation bilaterally. Heart: Regular, normal S1 and S2 without murmur, rub or gallop. Abdomen: Soft and non tender no organomegaly Extremities: No cyanosis,clubbing or edema. Difficulty moving bilateral lower extremities due to pain. Extremely sensitive to mild pain Neurological: Alert, oriented , Normal speech, motor, sensation,Cranial nerves intact,Cerebellar function intact,Normal memory and thought process Psychiatric:Appropriate mood and affect,No hallucinations or suicidal ideation Skin: Warm and Dry. Coagulation Studies Laboratory Tests Test 04/30/25 20:19 Prothrombin Time 11.6 SECONDS (9.0-12.0) INR International Normalized Ratio 1.1 INR Activated Partial Thromboplast Time 28 SECONDS (22-32) Coagulation Comments Advance Care Planning Advanced Care plannin - 30 Minutes Assessment Assessment 80 years old female with past medical history of osteoarthritis, AFib, heart failure with unknown ejection is currently evaluated for severe left hip pain Plan Plan Unilateral osteoarthritis of left hip Pelvis CT from 04/30/2025- left hip joint space narrowing and osteophyte formation Pain control with Dilaudid 0.1 and 0.2 mg q.4h for moderate and severe pain Lidocaine patch locally Dr. Peraza recommended nonoperative manage as patient denies hip replacement Pending PT evaluation Acute kidney injury Possibly prerenal vs acute tubular stasis FENA< 0.2 % Started on IV NS 100 cc per Follow-up with CMP Atrial fibrillation Continue home med metoprolol, amiodarone and Eliquis Echocardiogram shows LVEF-60-65%, RVSP-37 mmHg Insulin-dependent type 2 diabetes mellitus HB A1c 7.4 Glucose-388 Started high hyperglycemia/hypoglycemia protocol with Lantus 20 units Hypothyroidism: Continuing Levothyroxine 75 mcg TSH-0.45 Code Status: Full DVT prophylaxis: SCDs Analgesia/Sedation: [place] Line/tube: Peripheral Nutrition: Minced moist/grinded PT: Ordered Prognosis: Guarded Disposition- orthopedician Dr. Peraza recommended hip arthroplasty but patient refused and choose the medical management, pending PT evaluation Maxx Ortiz PGY1-Internal Medicine Resident Date of Service: May 01, 2025 Billing Provider: CARLOZ BRIAN MD,MAXX, RES May 01, 2025 16:32
--- NOTE | 2025-05-01 17:12 | RADIOLOGY REPORT ---
CHEST RADIOGRAPH Indication: suspected Pulmonary congestion Technique: Single frontal view of the chest was obtained COMPARISON: DI CHEST,SINGLE VIEW on DOS: 03/07/24, DI CHEST,SINGLE VIEW on DOS: 01/31/24, CHEST,SINGLE VIEW on DOS: 05/09/22, CHEST,SINGLE VIEW on DOS: 03/05/22, CHEST,SINGLE VIEW on DOS: 01/15/21 FINDINGS: Lines and Tubes: None Lungs: Clear Pleura: No effusion. No pneumothorax. Cardiomediastinal contours: Unremarkable Bones: Status post right shoulder arthroplasty. IMPRESSION: 1. No radiographic evidence of acute cardiopulmonary abnormality.
[2025-05-01] MEDS: metoprolol succinate 25mg (24-HOUR) SR. Tablet PO SCH (19:47)
--- NOTE | 2025-05-01 20:21 | CARDIOLOGY REPORT ---
APPROVED REPORT EXAM: Comprehensive 2D, Doppler, and color-flow Echocardiogram. Patient Location: 345 [address] Heart Rate: 60's bpm Rhythm: SINUS Indications CONGESTIVE HEART FAILURE ATRIAL FIBRILLATION Primary Care Sales Representative: NONE Previous echo: [facility] 04-27-24 [facility] EF 60-65%, HENRY: 1.84, PK V: 204, GRAD: 16/8, RVSP 46, mMR, trTR 2D Dimensions RVDd 2.7 cm LA Diam 5.4 cm IVSd 0.7 (0.7-1.1cm) LVDd 4.8 cm PWd 0.8 (0.7-1.1cm) IVSs 1.4 (0.8-1.2cm) LVDs 3.1 (2.5-4.0cm) PWs 1.4 (0.8-1.2cm) LVOT Diameter 2.17 (1.8-2.4cm) LVEF(%) 63.1 (>50%) FS (%) 34.2 % SV 67.3 ml CO 4.5 L/min M-Mode Dimensions Aortic Root 3.09 (2.2-3.7cm) Aortic Valve AoV Peak Wilson. 212.1 cm/s AoV VTI 41.9 cm AO Peak GR. 18.0 mmHg AO Mean GR. 11 mmHg LVOT VTI 26.46 cm LVOT Peak Wilson. 90.4 cm/s HENRY(VTI)/BSA 1.89 cm2/m2 HENRY (VTI) 1.89 cm2 Mitral Valve MV E Velocity 120.6 cm/s MV DECEL TIME 192 ms MV A Velocity 95.2 cm/s E/A Ratio 1.3 TDI Lateral E' P. V 6.99 cm/s E/Lateral E' 17.3 Tricuspid Valve TR P. Velocity 260 cm/s RAP ESTIMATE 10 mmHg TR Peak Gr. 27 mmHg RVSP 37 mmHg Pulmonary Vein S1 Velocity 64.6 cm/s D2 Velocity 44.7 cm/s PVa Velocity 35.7 cm/s PVa Duration 100 msec LEFT VENTRICLE Normal LV size and wall thickness. Overall systolic function is normal. LVEF is 60-65%. RIGHT VENTRICLE RV is normal size and function. Elevated right heart pressures with an RVSP of 37 mmHg. ATRIA Left atrium is moderately dilated. AORTIC VALVE Trileaflet AV appears moderately calcified and sclerotic with probable mild stenosis. HENRY: 1.89 cmsq; Pkv: 212 cm/sec; Gradients: 18/11 mmHG. Trace insufficiency. Peak velocity likely higher, unable to obtain optimal window for alternative Doppler. MITRAL VALVE Moderate MV annular calcification without stenosis. Trace regurgitation. TRICUSPID VALVE TV appears structurally normal with mild regurgitation. PULMONIC VALVE Normal PV without stenosis, physiologic insufficiency. GREAT VESSELS The aortic root is normal in size. PERICARDIUM Normal pericardium. No effusion. Conclusion Normal LV size and wall thickness. Overall systolic function is normal. LVEF is 60-65%. RV is normal size and function. Elevated right heart pressures with an RVSP of 37 mmHg. Left atrium is moderately dilated. Trileaflet AV appears moderately calcified and sclerotic with probable mild stenosis. HENRY: 1.89 cmsq; Pkv: 212 cm/sec; Gradients: 18/11 mmHG. Trace insufficiency. Peak velocity likely higher, unable to obtain optimal window for alternative Doppler. Moderate MV annular calcification without stenosis. Trace regurgitation. TV appears structurally normal with mild regurgitation. Normal pericardium. No effusion.
[2025-05-01] MEDS: cholecalciferol (vitamin D3) 1,000 unit (25mcg) tablet PO SCH (20:55)
[2025-05-01] MEDS ORDERED: insulin glargine (Lantus) pen - multi-dose SQ SCH ×2 (21:00)
[2025-05-01] MEDS: insulin glargine (Lantus) pen - multi-dose SQ SCH (23:22)
[2025-05-02 01:40] VITALS: O2SAT 16
[2025-05-02 05:00] VITALS: BP 114/57; PULSE 59; RESP 16; TEMP 97.4; O2SAT 98
[2025-05-02 06:32] LABS: MEAN PLATELET VOLUME 10.7 FL (7.4-10.4); RED CELL DISTRIBUTION WIDTH 15.2 % (11.5-14.5)
[2025-05-02] MEDS: INSULIN LISPRO 100 UNIT/ML INSULN.PEN MULTI-DOSE SQ SCH (07:30)
[2025-05-02 07:35] LABS: CREATININE 1.19 MG/DL (0.40-0.90); TOTAL CARBON DIOXIDE 22.4 MMOL/L (24-32); eCRCL 28 ML/MIN; eGFR 44 ML/MIN
[2025-05-02 09:41] VITALS: RESP 18; O2SAT 96
[2025-05-02 10:00] VITALS: BP 94/48; PULSE 106; RESP 17; TEMP 98.1; O2SAT 96
[2025-05-02] MEDS: CefTRIAXone/D5W-Rocephin 1gm 50 ML IV SCH (14:24)
[2025-05-02 15:54] VITALS: BP_SYST 122; BP_SYST 125; BP_SYST 132; BP_DIAS 62; BP_DIAS 63; BP_DIAS 71; PULSE 76; PULSE 81; PULSE 89
[2025-05-02 18:40] VITALS: BP 140/58; PULSE 53; RESP 19; TEMP 97.1; O2SAT 98
--- NOTE | 2025-05-02 20:34 | PROGRESS NOTE- Residence ---
Progress Note - Resident Providers to CC Resident Creating Document: MAXX ORTIZ RES ~ Antibiotic Timeout Antibiotic Ordered?: Yes Subjective Patient was examined at bedside. Patient still reports left hip pain with severity 9/10 in intensity Objective Vital Signs Date Time Temp Pulse Resp B/P (MAP) Pulse Ox O2 Delivery O2 Flow Rate FiO2 05/02/25 15:54 76 132/71 (91) 81 125/63 (83) 89 122/62 (82) 05/02/25 15:44 18 05/02/25 10:00 98.1 96 Room Air 05/02/25 09:41 0.0 21 Result Diagram: 05/02/25 0558 05/02/2558 General: Alert, awake, oriented with no acute distress HEENT: Conjunctiva pink, Sclera clear, Mucus Membranes moist, no JVD. No teeth Resp: Unlabored. Lungs clear to auscultation bilaterally. Heart: Regular, normal S1 and S2 without murmur, rub or gallop. Abdomen: Soft and non tender no organomegaly Extremities: No cyanosis,clubbing or edema. Difficulty moving bilateral lower extremities due to pain. Extremely sensitive to mild movement Neurological: Alert, oriented , Normal speech, motor, sensation,Cranial nerves intact,Cerebellar function intact,Normal memory and thought process Psychiatric:Appropriate mood and affect,No hallucinations or suicidal ideation Skin: Warm and Dry. Coagulation Studies Laboratory Tests Test 04/30/25 20:19 Prothrombin Time 11.6 SECONDS (9.0-12.0) INR International Normalized Ratio 1.1 INR Activated Partial Thromboplast Time 28 SECONDS (22-32) Coagulation Comments Advance Care Planning Advanced Care plannin - 30 Minutes Assessment Assessment 80 years old female with past medical history of osteoarthritis, AFib, heart failure with unknown ejection is currently evaluated for severe left hip pain Plan Plan Unilateral osteoarthritis of left hip Pelvis CT from 04/30/2025- left hip joint space narrowing and osteophyte formation Lidocaine patch locally Dr. Peraza recommended nonoperative manage as patient denies hip replacement Pain control with Dilaudid 2 mg Pending PT evaluation Urinary tract infection Urinalysis positive for bacteria Started on ceftriaxone 1 g IV Acute kidney injury Possibly prerenal vs acute tubular stasis FENA< 0.2 % Improving Continue maintenance fluids Follow-up with CMP Atrial fibrillation Continue home med metoprolol, amiodarone and Eliquis Echocardiogram shows LVEF-60-65%, RVSP-37 mmHg Insulin-dependent type 2 diabetes mellitus HB A1c 7.4 Started high hyperglycemia/hypoglycemia protocol with Lantus 20 units Hypothyroidism: Continuing Levothyroxine 75 mcg TSH-0.45 Code Status: Full DVT prophylaxis: SCDs Analgesia/Sedation: Dilaudid Line/tube: Peripheral Nutrition: Minced moist/grinded PT: Ordered Prognosis: Guarded Disposition- orthopedician Dr. Peraza recommended hip arthroplasty but patient refused and choose the medical management, pending PT evaluation Maxx Ortiz PGY1-Internal Medicine Resident Date of Service: May 02, 2025 Billing Provider: CARLOZ BRIAN MD,MAXX, RES May 02, 2025 20:34
[2025-05-03 05:00] VITALS: BP 114/48; PULSE 68; RESP 17; TEMP 97.8; O2SAT 94
[2025-05-03 06:06] LABS: CREATININE 1.05 MG/DL (0.40-0.90); TOTAL CARBON DIOXIDE 26.3 MMOL/L (24-32); eCRCL 32 ML/MIN; eGFR 50 ML/MIN
[2025-05-03 06:20] LABS: MEAN PLATELET VOLUME 10.9 FL (7.4-10.4); RED CELL DISTRIBUTION WIDTH 14.7 % (11.5-14.5)
[2025-05-03 08:48] LABS: PLATELET ESTIMATE DECREASED
[2025-05-03 08:49] LABS: LARGE PLATELETS FEW
[2025-05-03 09:28] VITALS: RESP 17; O2SAT 94
[2025-05-03 10:51] VITALS: BP 153/60; PULSE 62; RESP 20; TEMP 97.4; O2SAT 96
--- NOTE | 2025-05-03 16:58 | PROGRESS NOTE- Residence ---
Progress Note - Resident Providers to CC Resident Creating Document: FEDERICO HANSON RES CC: CARLOZ BRIAN MD ~ Antibiotic Timeout Antibiotic Ordered?: Yes Subjective Patient was examined at bedside. Patient continues to to have left hip pain. No other acute overnight symptoms noted Objective Vital Signs Date Time Temp Pulse Resp B/P (MAP) Pulse Ox O2 Delivery O2 Flow Rate FiO2 05/03/25 16:23 18 05/03/25 10:51 97.4 62 153/60 (91) 96 Room Air 05/03/25 09:28 0.0 21 Result Diagram: 05/03/2545005/03/25450 General: Awake, oriented to person, place and time HEENT: Conjunctive are pink, sclerae clear, no icterus, pupil is equal in both sides, reactive to light, no ear discharge, no pharyngeal erythema or an edema. Neck: Supple, no JVD, no lymphadenopathy and thyromegaly. Chest: Equal air entry on both lungs, no additional sounds no rhonchi no wheezing at the moment. Cardiovascular: S1-S2 regular sinus rhythm and, regular rate, no gallops, no rubs, no murmurs Abdomen: No visible peristalsis, Bowel sounds present on auscultation, soft, no tenderness, no guarding, no rigidity Extremities: No obvious deformities, no pitting edema bilaterally, capillary refill intact, peripheral pulsations are intact on both sides.Difficulty moving bilateral lower extremities due to pain. Extremely sensitive to mild movement Central Nervous System: No focal neurological deficits, no motor or sensory weakness in all 4 extremities, could move all 4 extremities, 2+ deep tendon reflexes, negative Babinski. Musculoskeletal: No joint swelling, deformities, inflammations, and no scoliosis and back tenderness Skin: Warm and dry. Dry oral mucosa. Coagulation Studies Laboratory Tests Test 04/30/25 20:19 Prothrombin Time 11.6 SECONDS (9.0-12.0) INR International Normalized Ratio 1.1 INR Activated Partial Thromboplast Time 28 SECONDS (22-32) Coagulation Comments Advance Care Planning Advanced Care plannin - 30 Minutes Assessment Assessment 80 years old female with past medical history of osteoarthritis, AFib, heart failure with unknown ejection is currently evaluated for severe left hip pain Plan Plan Unilateral osteoarthritis of left hip Pelvis CT from 04/30/2025- left hip joint space narrowing and osteophyte formation Dr. Peraza recommended surgical management, however patient declined Physical therapy worked with the patient and recommended discharge to post acute care Plan Lidocaine patch locally Pain control with Dilaudid 2 mg Urinary tract infection Urinalysis positive for bacteria Urine culture grew pansensitive E coli Continue ceftriaxone Acute kidney injury Possibly prerenal vs acute tubular stasis Patient's creatinine is downtrending and is almost close to her baseline Atrial fibrillation Echocardiogram shows LVEF-60-65%, RVSP-37 mmHg Continue home med metoprolol,amiodarone and Eliquis Insulin-dependent type 2 diabetes mellitus HB A1c 7.4 High hyperglycemia and hypoglycemic protocol in place Hypothyroidism: Continue levothyroxine 75 mcg Constipation Patient has not had a bowel movement for the last few days Initiated the patient on Dulcolax suppository Code Status: Full DVT prophylaxis: SCDs Analgesia/Sedation: Dilaudid Line/tube: Peripheral Nutrition: Minced moist/grinded PT: Ordered Prognosis: Guarded Disposition: Physical therapy evaluated the patient and recommended discharge to rehab. Patient will get discharged to [facility] tomorrow Federico Hanson PGY1-Internal Medicine Resident Date of Service: May 03, 2025 Billing Provider: CARLOZ BRIAN MD,FEDERICO, RES May 03, 2025 16:57
[2025-05-03 18:00] VITALS: BP 108/45; PULSE 68; RESP 16; TEMP 98.4; O2SAT 94
[2025-05-03] MEDS: bisacodyl 10mg suppository rectal RC PRN (18:49)
[2025-05-03 20:00] VITALS: BP_SYST 118; BP_SYST 126; BP_DIAS 56; BP_DIAS 74; PULSE 82; PULSE 89; RESP 18; O2SAT 95
[2025-05-03 22:00] VITALS: BP 157/71; PULSE 87; RESP 17; TEMP 98.1; O2SAT 93
[2025-05-03] MEDS: polyethylene glycol 3350 17gm powd pack PO SCH (22:03)
[2025-05-04] MEDS: ondansetron/PF 4mg/2ml inj IV PRN (04:18)
[2025-05-04 05:45] LABS: MEAN PLATELET VOLUME 10.5 FL (7.4-10.4); RED CELL DISTRIBUTION WIDTH 14.5 % (11.5-14.5)
[2025-05-04 05:53] LABS: CREATININE 0.82 MG/DL (0.40-0.90); TOTAL CARBON DIOXIDE 23.5 MMOL/L (24-32); eCRCL 41 ML/MIN; eGFR 67 ML/MIN
[2025-05-04 06:00] VITALS: BP 141/57; PULSE 82; RESP 19; TEMP 98.1; O2SAT 98
[2025-05-04 08:00] VITALS: RESP 18; O2SAT 95
[2025-05-04 10:00] VITALS: BP 108/51; PULSE 71; RESP 22; TEMP 97.4; O2SAT 98
--- NOTE | 2025-05-04 19:40 | DISCHARGE SUMMARY-Residence ---
Discharge Summary Providers to CC Resident Creating Document: IFEANYI ORTIZ, RES ~ Discharge Summary Admission Diagnosis: LEFT HIP PAIN Hospital Course DATE OF ADMISSION: 04/30/2025 DATE OF DISCHARGE: 05/04/2025 Discharge Diagnosis\Comment: Unilateral osteoarthritis of left hip Urinary tract infection Acute kidney injury possibly prerenal versus acute tubular stasis Atrial fibrillation Insulin-dependent type 2 diabetes mellitus Hypothyroidism Constipation Operations\Procedures: None Consultants: Dr. Peraza Complications: None Condition on DC: Stable Discharge Summary: History of present illness 80 year old female with PMH of OA, Atrial fib, HF with unknown EF presented to the ER with complaints of severe left hip pain radiating the left knee over the last 8-9 days. She also presented to the ER with similar complaints yesterday and received dilaudid for pain as she reports inability to take any other pain medications; her pain improved and was controlled and hence, she was discharged home. She came back in today due to the recurrence of the similar pain. Denies any recent falls or trauma. A CT of the pelvis performed yesterday reveals left hip OA. There has been discussion with the primary care regarding left hip injections and PT but she declines the injections due to concerns on side effects with terms to weight gain and uncontrolled DM; and she has not checked herself into PT yet. She also declines surgery as she is concerned with her age and comorbidities. Hospital course Vital Signs Date Time Temp Pulse Resp B/P (MAP) Pulse Ox O2 Delivery O2 Flow Rate FiO2 05/04/25 10:00 97.4 71 22 108/51 (70) 98 Room Air 05/04/25 08:00 0.0 21 Laboratory Tests Test 05/03/25 04:51 05/03/25 08:04 05/03/25 12:24 05/03/25 17:25 White Blood Count 8.4 X10'3 Red Blood Count 3.91 X10'6 Hemoglobin 11.7 g/dl Hematocrit 34.0 % Mean Corpuscular Volume 86.9 FL Mean Corpuscular Hemoglobin 30.0 PG Mean Corpuscular Hemoglobin Concent 34.5 g/dL Red Cell Distribution Width 14.7 % Platelet Count 142 X10'3 Mean Platelet Volume 10.9 FL Neutrophils (%) (Auto) 59.8 % Lymphocytes (%) (Auto) 30.4 % Monocytes (%) (Auto) 7.7 % Eosinophils (%) (Auto) 1.5 % Basophils (%) (Auto) 0.6 % Neutrophils # (Auto) 5.0 X10'3 Lymphocytes # (Auto) 2.5 X10'3 Monocytes # (Auto) 0.6 X10'3 Eosinophils # (Auto) 0.1 X10'3 Basophils # (Auto) 0.1 X10'3 CBC Comment Platelet Estimate Decreased Large Platelets Few Red Blood Cell Morphology Normal Basophilic Stippling Sodium Level 140 MMOL/L Potassium Level 4.7 MMOL/L Chloride Level 109 MMOL/L Carbon Dioxide Level 26.3 MMOL/L Anion Gap 5 Blood Urea Nitrogen 37 MG/DL Creatinine 1.05 MG/DL Estimated GFR/1.73 m2 50 ML/MIN BUN/Creatinine Ratio 35.2 Glucose Level 130 MG/DL Calcium Level 8.3 MG/DL Magnesium Level 2.0 MG/DL Albumin 2.5 G/DL Chemistry Comments Glucometer 105 mg/dl 142 mg/dl 124 mg/dl Test 05/03/25 21:12 05/04/25 05:10 05/04/25 07:12 05/04/25 12:25 Glucometer 127 mg/dl 173 mg/dl 161 mg/dl White Blood Count 10.0 X10'3 Red Blood Count 3.90 X10'6 Hemoglobin 11.7 g/dl Hematocrit 34.0 % Mean Corpuscular Volume 87.3 FL Mean Corpuscular Hemoglobin 30.0 PG Mean Corpuscular Hemoglobin Concent 34.4 g/dL Red Cell Distribution Width 14.5 % Platelet Count 125 X10'3 Mean Platelet Volume 10.5 FL Neutrophils (%) (Auto) 85.8 % Lymphocytes (%) (Auto) 6.4 % Monocytes (%) (Auto) 7.1 % Eosinophils (%) (Auto) 0.5 % Basophils (%) (Auto) 0.2 % Neutrophils # (Auto) 8.6 X10'3 Lymphocytes # (Auto) 0.6 X10'3 Monocytes # (Auto) 0.7 X10'3 Eosinophils # (Auto) 0.0 X10'3 Basophils # (Auto) 0.0 X10'3 CBC Comment Sodium Level 136 MMOL/L Potassium Level 4.1 MMOL/L Chloride Level 108 MMOL/L Carbon Dioxide Level 23.5 MMOL/L Anion Gap 5 Blood Urea Nitrogen 25 MG/DL Creatinine 0.82 MG/DL Estimated GFR/1.73 m2 67 ML/MIN BUN/Creatinine Ratio 30.5 Glucose Level 182 MG/DL Calcium Level 7.2 MG/DL Magnesium Level 1.8 MG/DL Albumin 2.2 G/DL Chemistry Comments PhysicGeneral: Awake, oriented to person, place and time HEENT: Conjunctive are pink, sclerae clear, no icterus, pupil is equal in both sides, reactive to light, no ear discharge, no pharyngeal erythema or an edema. Neck: Supple, no JVD, no lymphadenopathy and thyromegaly. Chest: Equal air entry on both lungs, no additional sounds no rhonchi no wheezing at the moment. Cardiovascular: S1-S2 regular sinus rhythm and, regular rate, no gallops, no rubs, no murmurs Abdomen: No visible peristalsis, Bowel sounds present on auscultation, soft, no tenderness, no guarding, no rigidity Extremities: No obvious deformities, no pitting edema bilaterally, capillary refill intact, peripheral pulsations are intact on both sides.Difficulty moving bilateral lower extremities due to pain. Extremely sensitive to mild movement Central Nervous System: No focal neurological deficits, no motor or sensory weakness in all 4 extremities, could move all 4 extremities, 2+ deep tendon reflexes, negative Babinski. Musculoskeletal: No joint swelling, deformities, inflammations, and no scoliosis and back tenderness Skin: Warm and dry. Dry oral mucosa.al examination Discharge instructions: FOLLOW UP WITH THE PRIMARY CARE PHYSICIAN WITH CBC AND CMP IN A WEEK. CALL 911 OR VISIT ER. Tablet cefdinir 300 mL p.o. b.i.d. for 1 week Tablet Culturalle p.o. b.i.d. for 1 month Levothyroxine 50 mcg before breakfast *Problems/Diagnosis: (1) DJD (degenerative joint disease) Status: Chronic Total Time Spent on D/C: Up to 30 Minutes Date of Service: May 04, 2025 Billing Provider: CARLOZ BRIAN MD Problem Qualifiers (1) DJD (degenerative joint disease): Osteoarthritis location: hip Osteoarthritis type: primary Laterality: left Qualified Codes: M16.12 - Unilateral primary osteoarthritis, left hip IFEANYI ORTIZ, RES May 04, 2025 19:40
== END 2025-05-04 14:50 | DRG 553 ==
LOC: ER 15:02 → ED HOLD 21:40 → SUR 3N 05-01 00:40
PROVIDERS: ADMIT Internal Medicine; ATTEND Family Medicine
DX: M16.12 Unilateral primary osteoarthritis, left hip (principal); N17.0 Acute kidney failure with tubular necrosis; N39.0 Urinary tract infection, site not specified; I13.0 Hypertensive heart and chronic kidney disease with heart failure and stage 1 through stage 4 chronic kidney disease, or unspecified chronic kidney disease; K59.00 Constipation, unspecified; E78.00 Pure hypercholesterolemia, unspecified; E11.22 Type 2 diabetes mellitus with diabetic chronic kidney disease; I48.91 Unspecified atrial fibrillation; E03.9 Hypothyroidism, unspecified; I25.10 Atherosclerotic heart disease of native coronary artery without angina pectoris; N18.9 Chronic kidney disease, unspecified; I50.9 Heart failure, unspecified; Z90.710 Acquired absence of both cervix and uterus; Z90.49 Acquired absence of other specified parts of digestive tract; Z88.5 Allergy status to narcotic agent; Z79.01 Long term (current) use of anticoagulants; Z79.899 Other long term (current) drug therapy; Z79.4 Long term (current) use of insulin; I25.2 Old myocardial infarction; Z82.49 Family history of ischemic heart disease and other diseases of the circulatory system; Z88.2 Allergy status to sulfonamides
CPT/HCPCS: 36415; 71045; 72131; 72192; 80048; 80061; 81001; 82570; 82948; 83036; 83605; 83735; 83880; 83935; 84145; 84156; 84300; 84443; 85008; 85025; 85610; 85651; 85730; 86140; 87040; 87077; 87081; 87088; 87186; 93005; 93306; 96374; 96375; 97116; 97161; 97530; 99285; A6250; A6258; G0378; J0696; J1100; J1171; J1815; J1885; J2405; J7030